=== PATIENT | female | born 1935 | race Caucasian/White ===

== ENCOUNTER → 2017-01-02 | Outpatient (CLI) | payer BC ==
[~2017-01-02] MED LIST: ASCA500 PO; BALANCE OPB; CHOL100010 PO; CLTP PO; CYCL0.052 OPB; LISI-461 PO; MULT-188 PO; OMEGCAP2 PO; VIT B1 PO; VITA400C15 PO
--- NOTE | 2017-01-02 14:11 | MAMMOGRAPHY REPORT ---
BILATERAL DIGITAL SCREENING MAMMOGRAM WITH CAD: 01/02/2017 CLINICAL HISTORY: Routine screening. Patient has no complaints. TECHNIQUE: Current study was also evaluated with a Computer Aided Detection (CAD) system. Bilatera l CC and MLO views were obtained. COMPARISON: Comparison is made to exams dated: 12/30/2015 mammogram, 12/28/2014 mammogram, 12/23/2013 mammogram, 12/22/2012 mammogram, 12/21/2011 mammogram, and 12/19/2010 mammogram - [facility]. BREAST COMPOSITION: There are scattered areas of fibroglandular density in both breasts. FINDINGS: No suspicious masses, calcifications, or areas of architectural distortion are noted in e ither breast. There has been no significant interval change compared to prior exams. There are stab le post surgical changes in the left breast from prior surgical excision; a linear scar marker denot es a scar on the left lateral breast. Scattered bilateral benign-appearing calcifications are not s ignificantly changed. IMPRESSION: ACR BI-RADS CATEGORY 2: BENIGN There is no mammographic evidence of malignancy. A 1 year screening mammogram is recommended. The p atient will receive written notification of the results. Approximately 10% of breast cancers are not detected with mammography. A negative mammographic repor t should not delay biopsy if a clinically suggestive mass is present. Hafsa Roca M.D. /:01/02/2017 13:15:54 Education Program Associate: Francia REBOLLEDO(Brie)(M), [facility] letter sent: Normal 1/2 BI-RADS Code: ACR BI-RADS Category 2: Benign
== END | disposition home or self-care (01) ==
LOC: C.MAMM 09:19
PROVIDERS: ATTEND Internal Medicine Geriatric Medicine
DX: Z12.31 Encounter for screening mammogram for malignant neoplasm of breast (principal)

== ENCOUNTER → 2017-01-08 | Outpatient (CLI) | payer BC | END | disposition home or self-care (01) | LOC: C.MAMM 09:59 | PROVIDERS: ATTEND Internal Medicine Geriatric Medicine | DX: M85.852 Other specified disorders of bone density and structure, left thigh (principal) ==

== ENCOUNTER → 2017-04-16 | Outpatient (CLI) | payer BC ==
[2017-04-16 13:23] LABS: BASO % 0.2 %; BASO ABS # 0.01 K/uL (0-0.2); COMPLETE YES; EOS % 3.6 %; HEMATOCRIT 40.8 % (37-47); IG% 0.3 %; LYMPH % 27.3 %; LYMPH ABS # 1.69 K/uL (1.2-3.4); MEAN CELL VOLUME 93.6 fL (80-100); MEAN CORPUSCULAR HEMOGLOBIN 31.4 pg (25-34); MEAN CORPUSCULAR HGB CONC 33.6 g/dl (32-36); MEAN PLATELET VOLUME 10.3 fL (7.4-10.4); MONO % 10.7 %; NEUT % 57.9 %; PLATELET COUNT 262 K/uL (130-400); RED BLOOD COUNT 4.36 M/uL (4.2-5.4); WHITE BLOOD COUNT 6.18 K/uL (4.8-10.8)
[2017-04-16 14:30] LABS: ALT/SGPT 34 U/L (12-78); BLOOD UREA NITROGEN 18 mg/dl (7-18); BUN/CREATININE RATIO 19.4 (10-20); CALCIUM 9.5 mg/dl (8.5-10.1); CARBON DIOXIDE 32 mmol/L (21-32); CHLORIDE 104 mmol/L (98-107); CHOLESTEROL 214 mg/dl (0-200); CREATININE 0.94 mg/dl (0.60-1.20); GLUCOSE 93 mg/dl (70-99); SODIUM 139 mmol/L (136-145); TRIGLYCERIDES 314 mg/dl (0-150); VERY LOW DENSITY LIPOPROT CALC 63 mg/dl
[2017-04-16 14:40] LABS: ALB/GLOB RATIO 0.9 (0.9-2); ALKALINE PHOSPHATASE 68 U/L (45-117); AST/SGOT 39 U/L (15-37); CHOLESTEROL/HDL RATIO 5.2; HDL CHOLESTEROL 41 mg/dl; LDL CHOLESTEROL CALCULATED 110 mg/dl
--- NOTE | 2017-04-25 13:40 | CODING QUERY MEDICAL NECESSITY ---
SUPPORTING DIAGNOSIS NEEDED A supporting diagnosis is required for the test/procedure performed on this patient in order for us to be reimbursed by the patient's insurance. Please provide a supporting diagnosis for the following test/procedure listed below next to the test name along with your signature. *If there is no additional diagnosis for this patient that would support the following test/procedure please document that below next to the test/procedure. Test(s)/Procedure(s) that require a supporting diagnosis: * VITAMIN D, 25 - HYDROXY DIAGNOSIS: Provider Signature: Date: Thank you Marta Charles [employer] Once completed, please kindly fax back to [phone] For questions please call [phone]
== END | disposition home or self-care (01) ==
LOC: C.LABBC 10:15
PROVIDERS: ATTEND Internal Medicine Geriatric Medicine
DX: Z00.00 Encounter for general adult medical examination without abnormal findings (principal); E78.5 Hyperlipidemia, unspecified; M85.80 Other specified disorders of bone density and structure, unspecified site

== ENCOUNTER → 2017-10-08 | Outpatient (CLI) | payer BC | END | disposition home or self-care (01) | LOC: C.PATHSPEC 16:56 | PROVIDERS: ATTEND Dermatology | DX: L82.1 Other seborrheic keratosis (principal) ==

== ENCOUNTER 2023-06-24 15:10 | Inpatient (IN) ==
--- NOTE | 2023-06-24 16:31 | Emergency Department Note ---
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 Patient states she was getting out of bed 2 to 3 weeks ago and last her footing and somehow rolled her left ankle causing her to almost fall. She states she caught herself by holding onto something but her left foot hyper-dorsiflexed. She has been ambulating since the injury but continues to experience pain diffusely throughout her ankle and swelling. She denies numbness/tingling. She denies falling or hitting her head or sustaining other injuries. She has been taking Tylenol or aspirin occasionally for her pain. Denies previous injury or surgeries to this extremity. Home Medications Medication Instructions Recorded Confirmed Type lisinopril 20 mg tablet 20 mg PO DAILY #90 tabs 02/26/22 06/24/23 Rx donepezil 10 mg tablet 10 mg PO HS 30 days #30 tabs 04/19/23 06/24/23 Rx acetaminophen 500 mg tablet 500 mg PO Q6H PRN Pain 06/24/23 06/24/23 History Allergies Allergy/AdvReac Type Severity Reaction Status Date / Time Ibandronate Sodium TABS AdvReac Intermediate Unknown Uncoded 06/24/23 18:30 Past Med/Surg History Medical History Mesenteric artery stenosis Osteopenia DEXA (01/19) with minimum T-score -1.2 involving femur. 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 marital status: Single Current Living Situation: Alone current occupational status: retired How many Children do You have: 0 Feels Safe at Home: Yes Childhood Exposure to Second-Hand Smoke: No Diet: regular Diet Comment: Boost caffeine: Yes Dental Care, Regularly: Yes Physical Activity Frequency: 1-2 Times per Week Seatbelt Use: always Sunscreen Use: Yes Assistive Devices: Cane and Walker Physical Exam Vital Signs Vital Signs - 24 hr 06/24/23 15:38 06/24/23 17:11 Temperature 36.9 C Temperature Source Temporal Artery Scan Pulse Rate 86 Pulse Rate [Apical] 84 Respiratory Rate 20 18 Respiratory Effort / Characteristics Non-Labored Respiratory Depth Normal Blood Pressure 174/75 H Blood Pressure Mean 108 Pulse Oximetry 98 98 Oxygen Delivery Method Room Air Room Air Sepsis Recent Fever Within 48 Hours No Sepsis New/Unexplained Change in Mental Status No Sepsis Action Taken by Nursing No Action Required Constitutional: alert and oriented x3. no acute distress. nontoxic HEENT: normocephalic, atraumatic. normal conjunctiva.PERRLA. EOM's grossly intact. TMs pearly robert without effusion. Pharynx pink without exudate. Tonsils nonenlarged. Mucus membranes moist Neck: neck is supple, nontender. Respiratory: lungs are clear to auscultation without wheezes, rhonchi, or rales bilaterally. equal chest rise. normal respiratory effort, no accessory muscle use. Cardiovascular: normal heart sounds without murmur. regular rate and rhythm. MSK: Diffuse tenderness at the left ankle and dorsal foot with associated swelling. No open wounds. Range of motion intact. Left knee and hip nontender to palpation Peripheral vascular: Lower extremities warm and well perfused with palpable pedal pulses. Brisk capillary refill of all digits. Sensation grossly intact Psych:appropriate mood and affect. Medical Decision Making Differential Diagnosis Fracture, subluxation, dislocation, contusion, ligamentous injury, neurovascular, compartment syndrome, rhabdomyolysis, as well as other pathologies. Laboratory Data 06/24/23 18:20 06/24/23 18:20 Lab Results 06/24/23 Range/Units 18:20 WBC 6.28 (4.8-10.8) K/ul RBC 4.30 (4.20-5.40) M/uL Hgb 13.0 (12.0-16.0) g/dl Hct 40.1 (37.0-47.0) % MCV 93.3 (80.0-100.0) fL MCH 30.2 (25.0-34.0) pg MCHC 32.4 (32.0-36.0) g/dL RDW Std Deviation 44.7 (36.4-46.3) fL RDW Coeff of Federico 13.2 (11.5-14.5) % Plt Count 245 (130-400) K/uL MPV 10.7 (9.4-12.4) fL Immature Gran % (Auto) 0.3 % Neut % (Auto) 67.2 % Lymph % (Auto) 19.9 % Mcdonough % (Auto) 11.0 % Eos % (Auto) 1.4 % Baso % (Auto) 0.2 % Neut # (Auto) 4.22 (1.40-6.50) K/uL Lymph # (Auto) 1.25 (1.20-3.40) K/uL Mcdonough # (Auto) 0.69 H (0.11-0.59) K/uL Eos # (Auto) 0.09 (0.00-0.50) K/uL Baso # (Auto) 0.01 (0.00-0.20) K/uL Immature Gran # (Auto) 0.02 (0.01-0.20) K/uL Sodium 141 (136-145) mmol/L Potassium 3.8 (3.5-5.1) mmol/L Chloride 105 (98-107) mmol/L Carbon Dioxide 30 (21-32) mmol/L Anion Gap 6 (3-11) BUN 28 H (6-23) mg/dl Creatinine 0.74 (0.6-1.2) mg/dl Est Cr Clr Drug Dosing Not Reportable Est GFR ( Amer) 83.8 ml/min Est GFR (Non-Af Amer) 72.3 ml/min BUN/Creatinine Ratio 37.8 H (10-20) Glucose 105 H (70-99(Fasting)) mg/dl Calcium 10.2 (8.6-10.3) mg/dl Total Bilirubin 0.4 (0.2-1.0) mg/dl AST 29 (13-39) U/L ALT 28 (7-52) U/L Alkaline Phosphatase 76 (34-104) U/L Total Protein 7.6 (6.0-8.3) gm/dl Albumin 4.1 (3.4-5.0) gm/dl Globulin 3.5 (2.5-4.0) gm/dl Albumin/Globulin Ratio 1.2 (0.9-2) Imaging Data My Impression: Left ankle and foot x-ray per my interpretation demonstrates metatarsal neck fractures of the second through fourth digits. No fracture or dislocation of the ankle Radiologist's Impression: Ankle X-Ray 06/24/23 16:27 XR ankle LT min 3V routine CLINICAL HISTORY: pain fall x 2 weeks TECHNIQUE: 3 views of the left ankle were obtained. Comparison: None available at the time of this dictation. FINDINGS: No fractures are present. The joint spaces are well preserved. The ankle mortise is intact. Soft tissue swelling is seen about the ankle. Vascular calcifications are seen. IMPRESSION: Soft tissue swelling is seen without evidence of underlying bony abnormality. ACT 112: Negative or not required by law. Electronically signed by: Rusty Chinchilla M.D. 06/24/2023 4:59 PM Foot X-Ray 06/24/23 16:27 LEFT FOOT 3 VIEWS CLINICAL HISTORY: Recent fall. Left foot pain. FINDINGS: 3 views of the left foot are compared to study dated 12/08/2021. The skeletal structures are osteopenic. There are minimally angulated fractures through the necks of the second, third, and fourth metatarsals with overlying soft tissue edema. No additional acute fracture is seen. Mild osteoarthritic change is seen throughout the foot, greatest at the first metatarsophalangeal joint. There is atherosclerotic calcification of the regional arteries. IMPRESSION: Second through fourth metatarsal neck fractures as above. Electronically signed by: Anil Mcfarlane M.D. 06/24/2023 4:54 PM MDM Narrative 88-year-old female presents to the emergency department accompanied by [id number]/POA for evaluation of left ankle and foot pain status post mechanical fall. Review of pertinent visits and past medical history performed. Vital signs in ED stable, afebrile. Patient was seen and evaluated as above. X-rays of the left foot and ankle were obtained. These were personally reviewed as well as interpreted by radiology as above and demonstrate second through fourth metatarsal necks fractures, minimally angulated. No other fractures noted within the left ankle. On exam, patient is well-appearing in no acute distress. She is mildly tender throughout the left ankle and foot with associated swelling. Neurovascularly intact. She declined need for pain medication while in the ED. Upon reassessment, patient remained stable with no new concerns. They were updated on all exam findings and test results. X-rays demonstrate fracture of the left foot. We discussed treatment options. Given her injury occurred approximately 2 weeks ago when she has been ambulating ever since, we discussed use of a fracture boot for additional support. She was agreeable to this. She will need close follow-up with orthopedics for continued management of her fracture. They verbalized understanding. [id number] does express concern for patient getting around on her own at home as she does live alone. She also notes she has dementia and does not remember much which further concerns her being alone with her injury. She requested placement to a rehab/SNF facility. I discussed case with hospitalist, Dr. Palencia, who graciously accepted patient to his service for continued management, PT/OT evaluation and placement. She was admitted in stable condition. Impression & Plan Closed fracture of metatarsal of right foot Discharge Plan Visit Data Chief Complaint: Ankle Pain Stated Complaint: FALL 3 WKS AGO, LEFT ANKLE PAIN ED Provider: Yves Fried ED Midlevel Provider: Key Flores Discharge Problem: Closed fracture of metatarsal of right foot Patient Disposition: Home - Self-Care Condition: Good Discharge Instructions Activity Restrictions/Additional Instructions: Wear fracture boot with ambulation until follow-up with orthopedics for further evaluation. Utilize walker for assistance Take Tylenol/ibuprofen for pain as needed. These may be alternated every 3 hours Elevate and ice affected remedy for 20 minutes at a time 2-3 times a day for swelling Please call orthopedics office to schedule outpatient appointment for further management of your foot fracture Return to the emergency department for any worsening or new concerning symptoms Forms Stand Alone Forms: My [facility], Important Visit Information Prescriptions Prescriptions: No Action lisinopril 20 mg tablet 20 mg PO DAILY Qty: 90 3RF donepezil 10 mg tablet 10 mg PO HS 30 Days Qty: 30 5RF acetaminophen [Tylenol Ex Str Rapid Release] 500 mg Tablet 500 mg PO Q6H PRN (Reason: Pain) Referrals Referrals: Clark Machuca DO [Primary Care Provider] - Neo Ramirez DO [Surgeon] -
--- NOTE | 2023-06-24 16:55 | XRay Report ---
LEFT FOOT 3 VIEWS CLINICAL HISTORY: Recent fall. Left foot pain. FINDINGS: 3 views of the left foot are compared to study dated 12/08/2021. The skeletal structures are osteopenic. There are minimally angulated fractures through the necks of the second, third, and fourt h metatarsals with overlying soft tissue edema. No additional acute fracture is seen. Mild osteoarthr itic change is seen throughout the foot, greatest at the first metatarsophalangeal joint. There is at herosclerotic calcification of the regional arteries. IMPRESSION: Second through fourth metatarsal neck fractures as above. Electronically signed by: Anil Mcfarlane M.D. 06/24/2023 4:54 PM
--- NOTE | 2023-06-24 17:00 | XRay Report ---
XR ankle LT min 3V routine CLINICAL HISTORY: pain fall x 2 weeks TECHNIQUE: 3 views of the left ankle were obtained. Comparison: None available at the time of this dictation. FINDINGS: No fractures are present. The joint spaces are well preserved. The ankle mortise is intact. Soft tiss ue swelling is seen about the ankle. Vascular calcifications are seen. IMPRESSION: Soft tissue swelling is seen without evidence of underlying bony abnormality. ACT 112: Negative or not required by law. Electronically signed by: Rusty Chinchilla M.D. 06/24/2023 4:59 PM
[2023-06-24 18:32] LABS: Basophils # (auto) 0.01 K/uL (0.00-0.20); Basophils % (auto) 0.2 %; Eosinophils # (auto) 0.09 K/uL (0.00-0.50); Eosinophils % (auto) 1.4 %; Hematocrit (blood only) 40.1 % (37.0-47.0); Immature Granulocytes # (auto) 0.02 K/uL (0.01-0.20); Immature Granulocytes % (auto) 0.3 %; Lymphocytes # (auto) 1.25 K/uL (1.20-3.40); Lymphocytes % (auto) 19.9 %; Mean Corpuscular Hemoglobin 30.2 pg (25.0-34.0); Mean Corpuscular Hgb Conc 32.4 g/dL (32.0-36.0); Mean Corpuscular Volume 93.3 fL (80.0-100.0); Mean Platelet Volume 10.7 fL (9.4-12.4); Monocytes # (auto) 0.69 K/uL (0.11-0.59); Neutrophils # (auto) 4.22 K/uL (1.40-6.50); Neutrophils % (auto) 67.2 %; Platelet Count 245 K/uL (130-400); RDW Coefficient of Variation 13.2 % (11.5-14.5); RDW Standard Deviation 44.7 fL (36.4-46.3); White Blood Count 6.28 K/ul (4.8-10.8)
[2023-06-24 18:52] LABS: Alanine Aminotransferase 28 U/L (7-52); Albumin Globulin Ratio 1.2 (0.9-2); Albumin Level 4.1 gm/dl (3.4-5.0); Alkaline Phosphatase 76 U/L (34-104); Anion Gap 6 (3-11); Aspartate Aminotransferase 29 U/L (13-39); BUN Creatinine Ratio 37.8 (10-20); Bilirubin,Total 0.4 mg/dl (0.2-1.0); Blood Urea Nitrogen 28 mg/dl (6-23); Calcium 10.2 mg/dl (8.6-10.3); Carbon Dioxide 30 mmol/L (21-32); Chloride 105 mmol/L (98-107); Est GFR (African American) 83.8 ml/min; Est GFR (Non-African American) 72.3 ml/min; Globulin 3.5 gm/dl (2.5-4.0); Glucose 105 mg/dl (70-99(Fasting)); Potassium 3.8 mmol/L (3.5-5.1); Sodium 141 mmol/L (136-145); Total Protein 7.6 gm/dl (6.0-8.3)
[2023-06-24 19:05] LABS: INR 0.9 (0.9-1.1); Prothrombin Time 10.4 Seconds (9.0-12.0)
--- NOTE | 2023-06-24 19:11 | History & Physical Report ---
Date of Service June 24, 2023 Assessment & Plan (1) Closed fracture of metatarsal of right foot: Plan: Patient fell and injured left foot 3 weeks ago R Ankle x-ray revealed soft tissue swelling without evidence of acute fracture R Foot x-ray revealed second through fourth metatarsal neck fracture Boot placed on left foot in the ED Ortho consulted Acetaminophen 650 mg p.o. q4h as needed for pain A.m. CBC, BMP (2) Dementia: Plan: Continue donepezil Plan [facility]: [facility] Regular diet VTE PPx: Hold for now; consider starting after pt seen by Ortho History of Present Illness Chief Complaint: Ankle pain Primary Care Provider: Clark Machuca DO Sonya is an 88-year-old female with PMH of HTN, dementia, NPH, and osteopenia. She presented for left foot/ankle pain x3 weeks. Patient reportedly fell 3 weeks ago while getting up at night to go to the bathroom, and rolled her left foot backwards. She denies hitting her head. No LOC. No other history of falls, per patient. Patient ambulates with a cane/walker at baseline, but was not using it at the time of the fall. Patient lives alone. She reports that she was able to get back up after the fall. She has been taking Tylenol for the pain (1 to 2 tablets daily) and Voltaren gel. The pain is located in her left ankle and left toes. She rates the pain 2/10, and is only exacerbated by movement. No radiation beyond the ankle. She does not know if she took her morning medications. She denies the need for pain medication at present. Left foot x-ray on arrival revealed second through fourth metatarsal neck fractures. Patient exhibits hypertension at 181/77 on admission; vitals otherwise stable. ED course: Lisinopril 20 mg p.o. ROS: Patient endorses frequent urination, and LLE pain. Patient denies fever, chills, chest pain, SOB, abdominal pain, N/V, or burning with urination. No PMHx of [place], DVT/PE, cancer, CVA, diabetes Social hx: No smoking Minimal social alcohol use No recreational drug use Patient's [id number] (Eloisa) is present at the bedside and provides additional history. She also confirms patient's code status as DNR/DNI, as patient does not exhibit capacity due to underlying dementia. Allergies Allergy/AdvReac Type Severity Reaction Status Date / Time Ibandronate Sodium TABS AdvReac Intermediate Unknown Uncoded 06/24/23 18:30 Home Medications Medication Instructions Recorded Confirmed Type lisinopril 20 mg tablet 20 mg PO DAILY #90 tabs 02/26/22 06/24/23 Rx donepezil 10 mg tablet 10 mg PO HS 30 days #30 tabs 04/19/23 06/24/23 Rx acetaminophen 500 mg tablet 500 mg PO Q6H PRN Pain 06/24/23 06/24/23 History Past Med/Surg History Medical History Mesenteric artery stenosis Osteopenia DEXA (01/19) with minimum T-score -1.2 involving femur. 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 Obstructive sleep apnea (~2009) Using dental appliance Hypertension Surgical History History of tonsillectomy Family History Mother Hypertension Father Hypertension Stroke Denies family history of Colon cancer Ovarian cancer Prostate cancer Myocardial infarction Breast cancer Social History Smoking Status: Never smoker Second Hand Exposure: No; Do You Dip or Chew Tobacco: No; Hx Alcohol Use: No Hx Substance Use: No Preferred Language: Cameroonian Communication Ability: Effective Visual Impairment: Limited Hearing Ability: Hard of Hearing Client Development Manager Required: No Beliefs That Will Affect Care: None marital status: Single Current Living Situation: Alone current occupational status: retired How many Children do You have: 0 Feels Safe at Home: Yes Safety Concerns: Feels Safe At This Time Childhood Exposure to Second-Hand Smoke: No Diet: regular Diet Comment: Boost caffeine: Yes Dental Care, Regularly: Yes Physical Activity Frequency: 1-2 Times per Week Seatbelt Use: always Sunscreen Use: Yes Assistive Devices: Cane and Walker Review of Systems Review of Systems: See HPI above Physical Exam Physical Exam: General: no acute distress; non-toxic appearing; cooperative HEENT: normocephalic, atraumatic; no scleral icterus; PERRLA w/ EOMs intact; dry mucus membrane; vision intact; hard of hearing Neck: supple; no lymphadenopathy; trachea midline Skin: warm, dry without signs of tenting; no cyanosis; no rashes, bruising, lesions, or erythema noted CV: chest wall NTP; RRR; S1/S2 normal; no murmurs/rubs/gallops; pulses intact in the right radial, DP, and PT Lungs: no acute respiratory distress; symmetrical chest wall expansion; clear breath sounds across all lung cummings w/o adventitious sounds; no wheezing ABD: Soft, NTP; BS present; no rebound/guarding; no ascites; no distention; negative CVA tenderness MSK: no tics or fasciculations; no edema noted in the LEs b/l LLE: In boot, patient exhibits the ability to wiggle toes; sensation intact in the left toes Neuro: A&Ox3; slow to respond to questioning; fluent speech; no focal deficits; sensation intact in the LEs B/L Results & Data Results & Data Vital Signs (Past 12 Hours) Vital Signs Temp Pulse Pulse Resp BP Pulse Ox O2 Del Method 06/24/23 17:11 84 18 98 Room Air 06/24/23 15:38 36.9 C 86 20 174/75 H 98 Room Air Laboratory Results Abnormal lab results 06/24/23 Range/Units 18:20 [place] # (Auto) 0.69 H (0.11-0.59) K/uL BUN 28 H (6-23) mg/dl BUN/Creatinine Ratio 37.8 H (10-20) Glucose 105 H (70-99(Fasting)) mg/dl Diagnostic Findings Ankle X-Ray 06/24/23 16:27 XR ankle LT min 3V routine CLINICAL HISTORY: pain fall x 2 weeks TECHNIQUE: 3 views of the left ankle were obtained. Comparison: None available at the time of this dictation. FINDINGS: No fractures are present. The joint spaces are well preserved. The ankle mortise is intact. Soft tissue swelling is seen about the ankle. Vascular calcifications are seen. IMPRESSION: Soft tissue swelling is seen without evidence of underlying bony abnormality. ACT 112: Negative or not required by law. Electronically signed by: Rusty Chinchilla M.D. 06/24/2023 4:59 PM Foot X-Ray 06/24/23 16:27 LEFT FOOT 3 VIEWS CLINICAL HISTORY: Recent fall. Left foot pain. FINDINGS: 3 views of the left foot are compared to study dated 12/08/2021. The skeletal structures are osteopenic. There are minimally angulated fractures through the necks of the second, third, and fourth metatarsals with overlying soft tissue edema. No additional acute fracture is seen. Mild osteoarthritic change is seen throughout the foot, greatest at the first metatarsophalangeal joint. There is atherosclerotic calcification of the regional arteries. IMPRESSION: Second through fourth metatarsal neck fractures as above. Electronically signed by: Anil Mcfarlane M.D. 06/24/2023 4:54 PM Code Status & VTE Plan Code Status DNR/DNI VTE Prophylaxis Plan VTE Prophylaxis will be ordered: No Supervising Physician Co-Signing Physician Notes I personally saw and examined the patient. I independently reviewed the labs, i maging, problem list, medication list, past medical history and family history. I verified all green points and agree with Deonte Liz PA-C with the following exceptions and/or additions: 88 year old female who presents to the ER with left foot pain for the last 3 weeks. Unable to give a good history of mechanism of injury but thinks she rolled the foot backwards. She thinks it was more of a balance issue or catching her foot and is not concerned about any dizziness or loss of consciousness. Came in today as not improving and feels she can no longer manage at home. O/E A&Ox3, HS RRR, no murmurs, Chest CTAB, Abdo SNT, left foot in boot, sensation intact distally A/P 2nd-4th MT neck fractures - NWB pending orthopedic evaluation, PT/OT placement PG Care Time/CCT Total # of Minutes Spent Total Time Spent with Patient: Total time spent is greater than 50% in coordination of care (as documented) at patient's floor/unit and/or counseling patient: C[place] [address] INT INP/OBS CARE 1/40MIN Patient Type Established Medical Decision Making Low Complexity Diagnoses Closed fracture of metatarsal of right foot S92.301A Dementia F03.90
--- NOTE | 2023-06-24 19:26 | Emergency Department Note ---
ED Visit Note I was consulted by the Advanced Practice Provider Key Flroes PA-C. I saw the patient personally and performed a substantive portion of the visit. This includes aspects of the HPI, MDM, diagnostic interpretations, and disposition/plan. Patient presented due to concern for recent fall with left foot pain the patient does have second through fifth metatarsal neck fractures. Patient admitted to the medicine service .
[2023-06-24 20:07] LABS: Magnesium 2.3 mg/dl (1.7-2.4)
[2023-06-24] MEDS ORDERED: lisinopril 20 MG TAB PO STA (20:14)
[2023-06-24] MEDS ORDERED: ACETAMINOPHEN 325 MG TAB PO PRN (20:45)
[2023-06-24] MEDS: DONEPEZIL HCL 10 MG TAB PO SCH (21:41)
[2023-06-25 06:43] LABS: Basophils # (auto) 0.02 K/uL (0.00-0.20); Basophils % (auto) 0.3 %; Eosinophils # (auto) 0.02 K/uL (0.00-0.50); Eosinophils % (auto) 0.3 %; Hematocrit (blood only) 37.8 % (37.0-47.0); Hemoglobin 12.3 g/dl (12.0-16.0); Immature Granulocytes # (auto) 0.02 K/uL (0.01-0.20); Immature Granulocytes % (auto) 0.3 %; Lymphocytes # (auto) 1.05 K/uL (1.20-3.40); Lymphocytes % (auto) 18.2 %; Mean Corpuscular Hemoglobin 30.5 pg (25.0-34.0); Mean Corpuscular Hgb Conc 32.5 g/dL (32.0-36.0); Mean Corpuscular Volume 93.8 fL (80.0-100.0); Mean Platelet Volume 10.8 fL (9.4-12.4); Monocytes # (auto) 0.56 K/uL (0.11-0.59); Monocytes % (auto) 9.7 %; Neutrophils # (auto) 4.09 K/uL (1.40-6.50); Neutrophils % (auto) 71.2 %; Platelet Count 234 K/uL (130-400); RDW Coefficient of Variation 13.1 % (11.5-14.5); RDW Standard Deviation 45.1 fL (36.4-46.3); Red Blood Count 4.03 M/uL (4.20-5.40); White Blood Count 5.76 K/ul (4.8-10.8)
[2023-06-25 07:20] LABS: Calcium 9.3 mg/dl (8.6-10.3); Potassium 3.8 mmol/L (3.5-5.1)
[2023-06-25 07:26] LABS: BUN Creatinine Ratio 32.8 (10-20); Creatinine Clr Calc Pharmacy 45.9 ml/min; Est GFR (Non-African American) 78.5 ml/min
[2023-06-25] MEDS: lisinopril 20 MG TAB PO SCH (07:29)
--- NOTE | 2023-06-25 12:45 | Hospitalist Progress Note ---
Date of Service June 25, 2023 Assessment & Plan (1) Closed fracture of metacarpal bone, neck: Plan: Patient fell and injured left foot 3 weeks ago L Ankle x-ray revealed soft tissue swelling without evidence of acute fracture L Foot x-ray revealed second through fourth metatarsal neck fracture Boot placed on left foot in the ED Ortho consulted Acetaminophen 650 mg p.o. q4h as needed for pain A.m. CBC, BMP (2) Dementia: Plan: Continue donepezil Plan Disposition: Obs -admit to [facility] DNR/DNI Regular diet VTE PPx: Hold for now; consider starting after pt seen by Ortho Admission and Anticipated Discharge Date Admission Date: June 24, 2023 Subjective Patient seen and examined, still n.p.o. says she is getting hungry. Pain is under good control Review of Systems Review of Systems: All systems reviewed are negative, apart from the ones contained in the history. Physical Exam Physical Exam: The patient is awake, alert and oriented 3, well developed and well nourished, normocephalic and atraumatic, lying in bed and in no acute distress. HEENT--PERRL, EOMI, mucous membranes and oropharynx mildly dry Neck--supple. No JVD. No bruits. Thyroid normal, trachea midline, no adenopathy. Heart--normal S1 and S2. No murmurs, rubs or gallops. Lungs--clear bilaterally, no respiratory distress, no accessory muscle use. Abdomen--normal bowel sounds and soft. Mild epigastric and left sided abdominal pain Extremities--left foot in cast Dermatologic--normal skin turgor, normal color, no abnormal lymph nodes, no rash. Neurologic--cranial nerves II through XII grossly intact. Rheumatologic--normal range of motion. Psychiatric--normal affect. Results & Data Results & Data Vital Signs (Past 12 Hours) Vital Signs Temp Pulse Resp BP Pulse Ox O2 Del Method 06/25/23 07:27 98.2 F 80 16 164/80 H 95 Room Air PG Care Time/CCT Total # of Minutes Spent Total Time Spent with Patient: Total time spent is greater than 50% in coordination of care (as documented) at patient's floor/unit and/or counseling patient: Coding Level of Care Code 61918 SUB INP/OBS CARE 2/35MIN Diagnoses Closed fracture of metacarpal bone, neck S62.339A Dementia F03.90 Time Spent (min) 35
[2023-06-25] MEDS ORDERED: hydroCHLOROthiazide 25 MG TAB PO STA (16:06)
--- NOTE | 2023-06-25 19:35 | Orthopedic Consultation ---
Date of Consultation June 25, 2023 Assessment & Plan (1) Closed fracture of neck of metatarsal bone of left foot: Patient has closed metatarsal neck fractures of the second, third and fourth metatarsals. Recommend nonoperative management with low tide walking boot. Limited weightbearing with walker. Apply ice to the left foot daily. Follow-up in 3 to 4 weeks after discharge with Dr. Correia with x-rays left foot at that time for reassessment. Thank you for the opportunity to consult in the care of this patient. Salazar Francismaliha DO [facility] orthopedic [place] [phone] History of Present Illness Reason for Consultation: Left foot pain, swelling and fractures of the second, third and fourth metatarsal necks. Requesting Physician: Twin Ng MD Attending Physician: Twin Ng MD History of Present Illness This pleasantly confused 88-year-old woman states that she likely twisted her left foot 3 weeks prior. She has had pain and swelling for the last few weeks. Finally she presented to [facility] ER where she had radiog raphs and was diagnosed with second, third and fourth metatarsal neck fractures. She was admitted to the hospitalist service due to inability to ambulate and multiple comorbidities and orthopedics was consulted. Allergies Allergy/AdvReac Type Severity Reaction Status Date / Time Ibandronate Sodium TABS AdvReac Intermediate Unknown Uncoded 06/24/23 18:30 Home Medications Medication Instructions Recorded Confirmed Type lisinopril 20 mg tablet 20 mg PO DAILY #90 tabs 02/26/22 06/24/23 Rx donepezil 10 mg tablet 10 mg PO HS 30 days #30 tabs 04/19/23 06/24/23 Rx acetaminophen 500 mg tablet 500 mg PO Q6H PRN Pain 06/24/23 06/24/23 History Patient History Medical History Mesenteric artery stenosis Osteopenia DEXA (01/19) with minimum T-score -1.2 involving femur. 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 Obstructive sleep apnea (~2009) Using dental appliance Hypertension Surgical History History of tonsillectomy Family History Mother Hypertension Father Hypertension Stroke Denies family history of Colon cancer Ovarian cancer Prostate cancer Myocardial infarction Breast cancer Social History Smoking Status: Never smoker Second Hand Exposure: No; Do You Dip or Chew Tobacco: No; Hx Alcohol Use: No Hx Substance Use: No Preferred Language: Romansh Communication Ability: Effective Visual Impairment: Limited Hearing Ability: Hard of Hearing [employer] Merch[employer] Required: No Beliefs That Will Affect Care: None marital status: Single Current Living Situation: Alone current occupational status: retired How many Children do You have: 0 Feels Safe at Home: Yes Safety Concerns: Feels Safe At This Time Childhood Exposure to Second-Hand Smoke: No Diet: regular Diet Comment: Boost caffeine: Yes Dental Care, Regularly: Yes Physical Activity Frequency: 1-2 Times per Week Seatbelt Use: always Sunscreen Use: Yes Assistive Devices: Cane and Walker Physical Exam Constitutional: WD/WN, vitals as above Eyes: PERRL, conjunctivae normal, anicteric sclerae ENMT: external ear and nose normal, oropharynx normal Neck: trachea midline, no thyromegaly Respiratory: normal respiratory effort, lungs clear to auscultation Cardiovascular: Regular rate and rhythm. Extremities well perfused. Gastrointestinal (Abdomen): Abdomen soft, nontender and nondistended. Bowel sounds present. Musculoskeletal: Left foot in low tide walking boot. Walking boot was removed and lower extremity was examined. Skin is warm, dry and intact. There is tenderness to palpation at the second, third and fourth metatarsal necks of the left foot. Limited range of motion and strength testing due to pain and guarding of the left foot. Pedal pulses palpable 2/4 bilateral feet. Sensation intact bilateral feet. Skin: no rashes, warm and dry Psychiatric: Features consistent with dementia. Lymphatic: no cervical or axillary lymphadenopathy Results & Data Vital Signs (Past 12 Hours) Vital Signs Temp Pulse Resp BP Pulse Ox O2 Del Method 06/25/23 16:12 36.5 C 86 16 184/80 H 97 Room Air 06/25/23 07:27 36.8 C 80 16 164/80 H 95 Room Air Diagnostic Findings Radiographs of the left foot reviewed noting minimally angulated and minimally displaced fractures of the second, third and fourth metatarsal necks. Os teopenia is evident. Minimal soft tissue swelling. (1) Closed fracture of neck of metatarsal bone of left foot Encounter type: initial encounter Qualified Code(s): S92.302A - Fracture of unspecified metatarsal bone(s), left foot, initial encounter for closed fracture
[2023-06-25] MEDS: DONEPEZIL HCL 10 MG TAB PO SCH (20:02)
[2023-06-25] MEDS ORDERED: ONDANSETRON INJ 2 MG/ML 2 ML VIAL IV PRN (23:25)
[2023-06-25] MEDS ORDERED: ONDANSETRON INJ 2 MG/ML 2 ML VIAL ONE (23:49)
[2023-06-26 06:21] LABS: Hematocrit (blood only) 41.9 % (37.0-47.0); Hemoglobin 13.6 g/dl (12.0-16.0); Mean Corpuscular Hemoglobin 30.5 pg (25.0-34.0); Mean Corpuscular Hgb Conc 32.5 g/dL (32.0-36.0); Mean Corpuscular Volume 93.9 fL (80.0-100.0); Mean Platelet Volume 10.9 fL (9.4-12.4); Platelet Count 265 K/uL (130-400); RDW Standard Deviation 44.8 fL (36.4-46.3); Red Blood Count 4.46 M/uL (4.20-5.40); White Blood Count 7.42 K/ul (4.8-10.8)
[2023-06-26 06:36] LABS: BUN Creatinine Ratio 26.8 (10-20); Calcium 9.7 mg/dl (8.6-10.3); Creatinine Clr Calc Pharmacy 37.5 ml/min; Est GFR (Non-African American) 63.9 ml/min; Potassium 3.8 mmol/L (3.5-5.1)
[2023-06-26] MEDS: hydroCHLOROthiazide 25 MG TAB PO SCH (08:30)
[2023-06-26] MEDS: lisinopril 20 MG TAB PO SCH (08:30)
--- NOTE | 2023-06-26 14:15 | Hospitalist Progress Note ---
Date of Service June 26, 2023 Assessment & Plan (1) Closed fracture of metacarpal bone, neck: Plan: Patient fell and injured left foot 3 weeks ago L Ankle x-ray revealed soft tissue swelling without evidence of acute fracture L Foot x-ray revealed second through fourth metatarsal neck fracture Boot placed on left foot in the ED Ortho consulted, no need for surgery. Continue boot and weaight bearing with a walker Acetaminophen 650 mg p.o. q4h as needed for pain A.m. CBC, BMP (2) Dementia: Plan: Continue donepezil Plan Disposition: Patient lives by herself and according to sister Eloisa, unable to take care of herself. However, patient says she wants to go home. PT/OT to evaluate DNR/DNI Regular diet VTE PPx: Hold for now; consider starting after pt seen by Ortho Admission and Anticipated Discharge Date Admission Date: June 24, 2023 Subjective Patient seen and examined, wants to go home Pain is under good control Review of Systems Review of Systems: All systems reviewed are negative, apart from the ones contained in the history. Physical Exam Physical Exam: The patient is awake, alert and oriented 3, well developed and well nourished, normocephalic and atraumatic, lying in bed and in no acute distress. HEENT--PERRL, EOMI, mucous membranes and oropharynx mildly dry Neck--supple. No JVD. No bruits. Thyroid normal, trachea midline, no adenopathy. Heart--normal S1 and S2. No murmurs, rubs or gallops. Lungs--clear bilaterally, no respiratory distress, no accessory muscle use. Abdomen--normal bowel sounds and soft. Mild epigastric and left sided abdominal pain Extremities--left foot in cast Dermatologic--normal skin turgor, normal color, no abnormal lymph nodes, no rash. Neurologic--cranial nerves II through XII grossly intact. Rheumatologic--normal range of motion. Psychiatric--normal affect. Results & Data Results & Data Vital Signs (Past 12 Hours) Vital Signs Temp Pulse Resp BP Pulse Ox O2 Del Method 06/26/23 07:24 97.5 F L 69 18 126/74 98 Room Air PG Care Time/CCT Total # of Minutes Spent Total Time Spent with Patient: Total time spent is greater than 50% in coordination of care (as documented) at patient's floor/unit and/or counseling patient: Coding Level of Care Code 31381 SUB INP/OBS CARE 235MIN Diagnoses Closed fracture of metacarpal bone, neck S62.339A Dementia F03.90 Time Spent (min) 35
--- NOTE | 2023-06-26 17:54 | Orthopedic Progress Note ---
Date of Service June 26, 2023 Assessment & Plan (1) Closed fracture of neck of metatarsal bone of left foot: Plan: Closed metatarsal neck fractures of the second, third and fourth metatarsals. Nonoperative management with low tide walking boot. Limited weightbearing with walker. Patient tolerated physical therapy well. Awaiting disposition to extended care facility. Apply ice to the left foot daily. Follow-up in 3 to 4 weeks after discharge from [facility] with Dr. Correia with x-rays left foot at that time for reassessment of left foot metatarsal fractures. Thank you for the opportunity to consult in the care of this patient. Salazar Correia DO [facility] orthopedic [place] [phone] Admission and Anticipated Discharge Date Admission Date: June 24, 2023 Subjective Patient seen and examined while on rounds. Tolerating the left lower extremity walker boot. Able to limit weightbearing with use of a walker as recommended. Pain well-controlled. Physical Exam Constitutional: WD/WN, vitals as above Eyes: PERRL, conjunctivae normal, anicteric sclerae ENMT: external ear and nose normal, oropharynx normal Neck: trachea midline, no thyromegaly Respiratory: normal respiratory effort, lungs clear to auscultation Gastrointestinal (Abdomen): Abdomen soft, nontender and nondistended. Normal bowel sounds. Musculoskeletal: Left lower extremity focused exam demonstrates skin which is warm, dry and intact. Edema has improved somewhat compared to yesterday exam. Patient tolerating walker boot without difficulty. Continued tenderness to palpation at the second, third and fourth metatarsal necks. Distal neurovascular status is intact. Compartments are soft. Dalia's negative. Skin: no rashes, warm and dry Psychiatric: Features consistent with dementia. Somewhat pleasantly confused. Lymphatic: no cervical or axillary lymphadenopathy Results & Data Vital Signs (Past 12 Hours) Vital Signs Temp Pulse Resp BP Pulse Ox O2 Del Method 06/26/23 14:38 36.4 C L 62 18 162/67 H 98 Room Air 06/26/23 07:24 36.4 C L 69 18 126/74 98 Room Air (1) Closed fracture of neck of metatarsal bone of left foot Encounter type: initial encounter Qualified Code(s): S92.302A - Fracture of unspecified metatarsal bone(s), left foot, initial encounter for closed fracture
[2023-06-26] MEDS: MELATONIN 3 MG TAB PO PRN (20:02)
[2023-06-26] MEDS: DONEPEZIL HCL 10 MG TAB PO SCH (20:02)
--- NOTE | 2023-06-27 06:42 | Electrocardiogram Report ---
Test Reason : Blood Pressure : / mmHG Vent. Rate : 061 BPM Atrial Rate : 061 BPM P-R Int : 156 ms QRS Dur : 082 ms QT Int : 438 ms P-R-T Axes : 074 049 081 degrees QTc Int : 440 ms Normal sinus rhythm with sinus arrhythmia Normal ECG No previous ECGs available Confirmed by Jatinder Harry ([id number]) on 06/27/2023 6:41:47 AM Referred By: REFERRED SELF Confirmed By:Jatinder Harry
[2023-06-27] MEDS: hydroCHLOROthiazide 25 MG TAB PO SCH (08:51)
[2023-06-27] MEDS: lisinopril 20 MG TAB PO SCH (08:51)
--- NOTE | 2023-06-27 11:12 | Hospitalist Progress Note ---
Date of Service June 27, 2023 Assessment & Plan (1) Closed fracture of metacarpal bone, neck: Plan: Patient fell and injured left foot 3 weeks ago L Ankle x-ray revealed soft tissue swelling without evidence of acute fracture L Foot x-ray revealed second through fourth metatarsal neck fracture Boot placed on left foot in the ED Ortho consulted, no need for surgery. Continue boot and weight bearing with a walker Acetaminophen 650 mg p.o. q4h as needed for pain Patient will need rehab (2) Dementia: Plan: Continue donepezil Plan Disposition: Patient lives by herself and according to sister Eloisa, unable to take care of herself. However, patient says she wants to go home. PT/OT to evaluate, she will need rehab DNR/DNI Regular diet VTE PPx: Hold for now; consider starting after pt seen by Ortho Admission and Anticipated Discharge Date Admission Date: June 27, 2023 Subjective Patient seen and examined today, weightbearing as tolerated, left boot in situ, walking with a walker Review of Systems Review of Systems: All systems reviewed are negative, apart from the ones contained in the history. Physical Exam Physical Exam: The patient is awake, alert and oriented 3, well developed and well nourished, normocephalic and atraumatic, lying in bed and in no acute distress. HEENT--PERRL, EOMI, mucous membranes and oropharynx mildly dry Neck--supple. No JVD. No bruits. Thyroid normal, trachea midline, no adenopath y. Heart--normal S1 and S2. No murmurs, rubs or gallops. Lungs--clear bilaterally, no respiratory distress, no accessory muscle use. Abdomen--normal bowel sounds and soft. Mild epigastric and left sided abdominal pain Extremities--left foot in cast Dermatologic--normal skin turgor, normal color, no abnormal lymph nodes, no rash. Neurologic--cranial nerves II through XII grossly intact. Rheumatologic--normal range of motion. Psychiatric--normal affect. Results & Data Results & Data Vital Signs (Past 12 Hours) Vital Signs Temp Pulse Resp BP Pulse Ox O2 Del Method 06/27/23 07:30 98.4 F 73 16 126/74 97 Room Air PG Care Time/CCT Total # of Minutes Spent Total Time Spent with Patient: Total time spent is greater than 50% in coordination of care (as documented) at patient's floor/unit and/or counseling patient: Coding Level of Care Code 96368 SUB INP/OBS CARE MIN Diagnoses Closed fracture of metacarpal bone, neck S62.339A Dementia F03.90 Time Spent (min) 35
[2023-06-27] MEDS: MELATONIN 3 MG TAB PO PRN (20:02)
[2023-06-27] MEDS: DONEPEZIL HCL 10 MG TAB PO SCH (20:03)
[2023-06-28 07:00] LABS: Hematocrit (blood only) 40.5 % (37.0-47.0); Hemoglobin 13.7 g/dl (12.0-16.0); Mean Corpuscular Hemoglobin 30.7 pg (25.0-34.0); Mean Corpuscular Hgb Conc 33.8 g/dL (32.0-36.0); Mean Corpuscular Volume 90.8 fL (80.0-100.0); Mean Platelet Volume 10.8 fL (9.4-12.4); Platelet Count 261 K/uL (130-400); RDW Coefficient of Variation 13.1 % (11.5-14.5); RDW Standard Deviation 42.9 fL (36.4-46.3); Red Blood Count 4.46 M/uL (4.20-5.40); White Blood Count 5.76 K/ul (4.8-10.8)
[2023-06-28 07:15] LABS: BUN Creatinine Ratio 33.3 (10-20); Calcium 9.5 mg/dl (8.6-10.3); Creatinine Clr Calc Pharmacy 35.4 ml/min; Est GFR (African American) 68.9 ml/min; Est GFR (Non-African American) 59.5 ml/min; Potassium 3.3 mmol/L (3.5-5.1)
[2023-06-28] MEDS: lisinopril 20 MG TAB PO SCH (08:16)
[2023-06-28] MEDS: hydroCHLOROthiazide 25 MG TAB PO SCH (08:16)
[2023-06-28] MEDS ORDERED: POLYETHYLENE (MIRALAX) 17 GM PACK PO PRN (09:42)
--- NOTE | 2023-06-28 10:56 | Hospitalist Progress Note ---
Date of Service June 28, 2023 Assessment & Plan (1) Closed fracture of metacarpal bone, neck: Plan: Patient fell and injured left foot 3 weeks prior to presentation L Ankle x-ray revealed soft tissue swelling without evidence of acute fracture L Foot x-ray revealed second through fourth metatarsal neck fracture Boot placed on left foot in the ED Ortho consulted, no need for surgery. Continue boot and weight bearing with a walker Acetaminophen 650 mg p.o. q4h as needed for pain Patient will need rehab (2) Dementia: Plan: Continue donepezil Plan Disposition: Patient lives by herself and according to sister Eloisa, unable to take care of herself. However, patient says she wants to go home. PT/OT to evaluate, she will need rehab DNR/DNI Regular diet VTE PPx: Hold for now; consider starting after pt seen by Ortho Admission and Anticipated Discharge Date Admission Date: June 27, 2023 Subjective Patient seen and examined today, weightbearing as tolerated, left boot in situ, walking with a walker Review of Systems Review of Systems: All systems reviewed are negative, apart from the ones contained in the history. Physical Exam Physical Exam: The patient is awake, alert and oriented 3, well developed and well nourished, normocephalic and atraumatic, lying in bed and in no acute distress. HEENT--PERRL, EOMI, mucous membranes and oropharynx mildly dry Neck--supple. No JVD. No bruits. Thyroid normal, trachea midline, no adenopathy. Heart--normal S1 and S2. No murmurs, rubs or gallops. Lungs--clear bilaterally, no respiratory distress, no accessory muscle use. Abdomen--normal bowel sounds and soft. Mild epigastric and left sided abdominal pain Extremities--left foot in cast Dermatologic--normal skin turgor, normal color, no abnormal lymph nodes, no rash. Neurologic--cranial nerves II through XII grossly intact. Rheumatologic--normal range of motion. Psychiatric--normal affect. Results & Data Results & Data Vital Signs (Past 12 Hours) Vital Signs Temp Pulse Resp BP Pulse Ox O2 Del Method 06/28/23 07:51 97.5 F L 63 15 154/75 H 98 Room Air PG Care Time/CCT Total # of Minutes Spent Total Time Spent with Patient: Total time spent is greater than 50% in coordination of care (as documented) at patient's floor/unit and/or counseling patient: Coding Level of Care Code 66632 SUB INP/OBS CARE 2/35MIN Diagnoses Closed fracture of metacarpal bone, neck S62.339A Dementia F03.90 Time Spent (min) 35
[2023-06-28] MEDS: SODIUM CHLORIDE 0.9% 1,000 ML IV SCH (14:31)
[2023-06-28] MEDS: MELATONIN 3 MG TAB PO PRN (20:12)
[2023-06-28] MEDS: DONEPEZIL HCL 10 MG TAB PO SCH (20:12)
[2023-06-29] MEDS: SODIUM CHLORIDE 0.9% 1,000 ML IV SCH ×2 (01:10→10:46)
[2023-06-29] MEDS: lisinopril 20 MG TAB PO SCH (08:02)
[2023-06-29] MEDS: hydroCHLOROthiazide 25 MG TAB PO SCH (08:02)
[2023-06-29 10:53] LABS: BUN Creatinine Ratio 25.7 (10-20); Calcium 9.3 mg/dl (8.6-10.3); Creatinine Clr Calc Pharmacy 41.6 ml/min; Est GFR (African American) 83.8 ml/min; Est GFR (Non-African American) 72.3 ml/min; Potassium 3.1 mmol/L (3.5-5.1)
--- NOTE | 2023-06-29 13:01 | Hospitalist Progress Note ---
Date of Service June 29, 2023 Assessment & Plan (1) Closed fracture of metacarpal bone, neck: Plan: Patient fell and injured left foot 3 weeks prior to presentation L Ankle x-ray revealed soft tissue swelling without evidence of acute fracture L Foot x-ray revealed second through fourth metatarsal neck fracture Boot placed on left foot in the ED Ortho consulted, no need for surgery. Continue boot and weight bearing with a walker Acetaminophen 650 mg p.o. q4h as needed for pain Patient will need rehab, d/c when approved (2) Dementia: Plan: Continue donepezil Plan Disposition: Patient lives by herself and according to sister Eloisa, unable to take care of herself. However, patient says she wants to go home. PT/OT to evaluate, she will need rehab DNR/DNI Regular diet VTE PPx: Hold for now; consider starting after pt seen by Ortho Admission and Anticipated Discharge Date Admission Date: June 27, 2023 Subjective Patient seen and examined today, weightbearing as tolerated, left boot in situ, walking with a walker Review of Systems Review of Systems: All systems reviewed are negative, apart from the ones contained in the history. Physical Exam Physical Exam: The patient is awake, alert and oriented 3, well developed and well nourished, normocephalic and atraumatic, lying in bed and in no acute distress. HEENT--PERRL, EOMI, mucous membranes and oropharynx mildly dry Neck--supple. No JVD. No bruits. Thyroid normal, trachea midline, no adenopathy. Heart--normal S1 and S2. No murmurs, rubs or gallops. Lungs--clear bilaterally, no respiratory distress, no accessory muscle use. Abdomen--normal bowel sounds and soft. Mild epigastric and left sided abdominal pain Extremities--left foot in cast Dermatologic--normal skin turgor, normal color, no abnormal lymph nodes, no rash. Neurologic--cranial nerves II through XII grossly intact. Rheumatologic--normal range of motion. Psychiatric--normal affect. Results & Data Results & Data Vital Signs (Past 12 Hours) Vital Signs Temp Pulse Resp BP Pulse Ox O2 Del Method 06/29/23 07:08 97.3 F L 69 18 188/69 H 98 Room Air PG Care Time/CCT Total # of Minutes Spent Total Time Spent with Patient: Total time spent is greater than 50% in coordination of care (as documented) at patient's floor/unit and/or counseling patient: Coding Level of Care Code 07430 SUB INP/OBS CARE MIN Diagnoses Closed fracture of metacarpal bone, neck S62.339A Dementia F03.90 Time Spent (min) 35
[2023-06-29] MEDS: DONEPEZIL HCL 10 MG TAB PO SCH (20:26)
[2023-06-29] MEDS: MELATONIN 3 MG TAB PO PRN (20:26)
[2023-06-30 08:06] LABS: Hematocrit (blood only) 41.5 % (37.0-47.0); Hemoglobin 13.3 g/dl (12.0-16.0); Mean Corpuscular Hemoglobin 30.1 pg (25.0-34.0); Mean Corpuscular Volume 93.9 fL (80.0-100.0); Mean Platelet Volume 10.8 fL (9.4-12.4); Platelet Count 255 K/uL (130-400); RDW Coefficient of Variation 13.2 % (11.5-14.5); RDW Standard Deviation 45.1 fL (36.4-46.3); Red Blood Count 4.42 M/uL (4.20-5.40); White Blood Count 6.52 K/ul (4.8-10.8)
[2023-06-30 08:29] LABS: Calcium 9.4 mg/dl (8.6-10.3); Creatinine Clr Calc Pharmacy 43.9 ml/min; Est GFR (African American) 89.7 ml/min; Est GFR (Non-African American) 77.4 ml/min; Potassium 3.4 mmol/L (3.5-5.1)
[2023-06-30] MEDS: lisinopril 20 MG TAB PO SCH (09:52)
[2023-06-30] MEDS: hydroCHLOROthiazide 25 MG TAB PO SCH (09:52)
--- NOTE | 2023-06-30 11:29 | Hospitalist Progress Note ---
Date of Service June 30, 2023 Assessment & Plan (1) Closed fracture of metacarpal bone, neck: Plan: Patient fell and injured left foot 3 weeks prior to presentation L Ankle x-ray revealed soft tissue swelling without evidence of acute fracture L Foot x-ray revealed second through fourth metatarsal neck fracture Boot placed on left foot in the ED Ortho consulted, no need for surgery. Continue boot and weight bearing with a walker Acetaminophen 650 mg p.o. q4h as needed for pain Patient will need rehab, d/c when approved (2) Dementia: Plan: Continue donepezil Plan Disposition: Patient lives by herself and according to sister in law Eloisa, unable to take care of herself. However, patient says she wants to go home. PT/OT to evaluate, she will need rehab DNR/DNI Regular diet VTE PPx: Hold for now; consider starting after pt seen by Ortho Admission and Anticipated Discharge Date Admission Date: June 27, 2023 Subjective Patient seen and examined today, weightbearing as tolerated, left boot in situ, walking with a walker Review of Systems Review of Systems: All systems reviewed are negative, apart from the ones contained in the history. Physical Exam Physical Exam: The patient is awake, alert and oriented 3, well developed and well nourished, normocephalic and atraumatic, lying in bed and in no acute distress. HEENT--PERRL, EOMI, mucous membranes and oropharynx mildly dry Neck--supple. No JVD. No bruits. Thyroid normal, trachea midline, no adenopathy. Heart--normal S1 and S2. No murmurs, rubs or gallops. Lungs--clear bilaterally, no respiratory distress, no accessory muscle use. Abdomen--normal bowel sounds and soft. Mild epigastric and left sided abdominal pain Extremities--left foot in cast Dermatologic--normal skin turgor, normal color, no abnormal lymph nodes, no rash. Neurologic--cranial nerves II through XII grossly intact. Rheumatologic--normal range of motion. Psychiatric--normal affect. Results & Data Results & Data Vital Signs (Past 12 Hours) Vital Signs Temp Pulse Resp BP Pulse Ox O2 Del Method 06/30/23 07:53 97.9 F 67 18 159/80 H 97 Room Air PG Care Time/CCT Total # of Minutes Spent Total Time Spent with Patient: Total time spent is greater than 50% in coordination of care (as documented) at patient's floor/unit and/or counseling patient: Coding Level of Care Code 08141 SUB INP/OBS CARE MIN Diagnoses Closed fracture of metacarpal bone, neck S62.339A Dementia F03.90 Time Spent (min) 35
[2023-06-30] MEDS: MELATONIN 3 MG TAB PO PRN (19:39)
[2023-06-30] MEDS: DONEPEZIL HCL 10 MG TAB PO SCH (19:39)
[2023-07-01] MEDS: lisinopril 20 MG TAB PO SCH (08:20)
[2023-07-01] MEDS: hydroCHLOROthiazide 25 MG TAB PO SCH (08:20)
[2023-07-01 08:57] LABS: Hematocrit (blood only) 40.2 % (37.0-47.0); Hemoglobin 13.6 g/dl (12.0-16.0); Mean Corpuscular Hemoglobin 30.9 pg (25.0-34.0); Mean Corpuscular Hgb Conc 33.8 g/dL (32.0-36.0); Mean Corpuscular Volume 91.4 fL (80.0-100.0); Mean Platelet Volume 10.4 fL (9.4-12.4); Platelet Count 245 K/uL (130-400); RDW Coefficient of Variation 13.2 % (11.5-14.5); RDW Standard Deviation 43.6 fL (36.4-46.3); White Blood Count 5.93 K/ul (4.8-10.8)
[2023-07-01 09:14] LABS: BUN Creatinine Ratio 30.4 (10-20); Calcium 9.5 mg/dl (8.6-10.3); Creatinine Clr Calc Pharmacy 38.9 ml/min; Est GFR (African American) 77.5 ml/min; Est GFR (Non-African American) 66.8 ml/min; Potassium 3.3 mmol/L (3.5-5.1)
--- NOTE | 2023-07-01 18:45 | Hospitalist Progress Note ---
Date of Service July 01, 2023 Assessment & Plan (1) Closed fracture of metacarpal bone, neck: Plan: Fractures involving left second, third, fourth metatarsals. Nonoperative intervention indicated by orthopedic surgery. Orthopedic consultation and management appreciated. She is now in a left foot walking boot. (2) Dementia: Plan: Stable. Continue donepezil Plan [facility]ful discharge [facility] tomorrowJuly 02 Admission and Anticipated Discharge Date Admission Date: June 27, 2023 Subjective Alert and oriented. No distress. Multiple left foot metatarsal fractures did not require operative intervention. She is now in a walking boot. Hopeful discharge to [facility] tomorrow, July 02 Review of Systems 2 Review of Systems: Constitutional-no fever or chills ENT-no blurred vision, no double vision, no epistaxis, no sore throat Respiratory-no cough, no wheezing, no shortness of breath Cardiac-no palpitations, no chest pain, no syncope GI-no nausea, vomiting, diarrhea, melena, hematochezia -no urinary retention, no urinary incontinence, no dysuria, no hematuria Musculoskeletal-no joint pain, no muscle tenderness. Left foot walking boot in place Skin-no bruising, no rashes, no pruritus Neuro-no isolated weakness, no paresthesia, no weakness Psych-no depression, no anxiety Physical Exam 2 Physical Exam: General-alert and oriented x3, no fevers, no chills HEENT-head atraumatic and normocephalic, pupils equal and reactive to light, extraocular muscles intact Neck-no lymphadenopathy or thyromegaly, trachea midline Chest-clear to auscultation percussion. No rales wheezing or rhonchi Cardiac-regular rate and rhythm, normal S1 and S2 Abdomen-normal bowel sounds, nontender, no hepatosplenomegaly Extremities-left foot walking boot in place. No edema noted right lower extremity Neuro-cranial nerves II through XII intact, motor and sensory function within normal limits, strength symmetrical, no focal deficits Psych-normal affect, normal mood Results & Data Results & Data Vital Signs (Past 12 Hours) Vital Signs Temp Pulse Resp BP Pulse Ox O2 Del Method 07/01/23 15:56 36.9 C 67 18 127/60 98 Room Air 07/01/23 08:10 36.5 C 66 16 126/70 96 Room Air 07/01/23 07:45 Room Air Laboratory Results 07/01/23 08:38 07/01/23 08:38 PG Care Time/CCT Total # of Minutes Spent Total Time Spent with Patient: Total time spent is greater than 50% in coordination of care (as documented) at patient's floor/unit and/or counseling patient: Coding Level of Care Code 84643 SUB INP/OBS CARE 3/50MIN Diagnoses Closed fracture of metacarpal bone, neck S62.339A Dementia F03.90
[2023-07-01] MEDS: MELATONIN 3 MG TAB PO PRN (20:08)
[2023-07-01] MEDS: DONEPEZIL HCL 10 MG TAB PO SCH (20:08)
[2023-07-01] MEDS: HEPARIN SOD 5,000 UNIT/0.5 ML VIAL SQ SCH (20:08)
[2023-07-02] MEDS: lisinopril 20 MG TAB PO SCH (07:59)
[2023-07-02] MEDS: hydroCHLOROthiazide 25 MG TAB PO SCH (08:00)
[2023-07-02] MEDS: HEPARIN SOD 5,000 UNIT/0.5 ML VIAL SQ SCH ×2 (08:00→20:18)
[2023-07-02] MEDS ORDERED: INFLUENZA VACCINE HIGH-DOSE (HD-IIV4) PF 65+ 0.7mL SYR IM ONE (12:04)
--- NOTE | 2023-07-02 16:36 | Hospitalist Progress Note ---
Date of Service July 02, 2023 Assessment & Plan (1) Closed fracture of metacarpal bone, neck: Plan: Fractures involving left second, third, fourth metatarsals. Nonoperative intervention indicated by orthopedic surgery. Orthopedic consultation and management appreciated. She is now in a left foot walking boot. (2) Dementia: Plan: Stable. Continue donepezil Plan She is medically stable. SNF placement when arrangements are finalized Admission and Anticipated Discharge Date Admission Date: June 27, 2023 Subjective Alert and oriented. No new problems. Afebrile with stable vital signs. Awaiting SNF placement Review of Systems 2 Review of Systems: Constitutional-no fever or chills ENT-no blurred vision, no double vision, no epistaxis, no sore throat Respiratory-no cough, no wheezing, no shortness of breath Cardiac-no palpitations, no chest pain, no syncope GI-no nausea, vomiting, diarrhea, melena, hematochezia -no urinary retention, no urinary incontinence, no dysuria, no hematuria Musculoskeletal-no joint pain, no muscle tenderness. Left foot walking boot in place Skin-no bruising, no rashes, no pruritus Neuro-no isolated weakness, no paresthesia, no weakness Psych-no depression, no anxiety Physical Exam 2 Physical Exam: General-alert and oriented x3, no fevers, no chills HEENT-head atraumatic and normocephalic, pupils equal and reactive to light, extraocular muscles intact Neck-no lymphadenopathy or thyromegaly, trachea midline Chest-clear to auscultation percussion. No rales wheezing or rhonchi Cardiac-regular rate and rhythm, normal S1 and S2 Abdomen-normal bowel sounds, nontender, no hepatosplenomegaly Extremities-left foot walking boot in place. No edema noted right lower extremity Neuro-cranial nerves II through XII intact, motor and sensory function within normal limits, strength symmetrical, no focal deficits Psych-normal affect, normal mood Results & Data Results & Data Vital Signs (Past 12 Hours) Vital Signs Temp Pulse Resp BP Pulse Ox O2 Del Method 07/02/23 14:36 36.6 C 65 16 124/68 96 Room Air 07/02/23 07:22 36.6 C 66 16 127/69 96 Room Air Laboratory Results 07/01/23 08:38 07/01/23 08:38 PG Care Time/CCT Total # of Minutes Spent Total Time Spent with Patient: Total time spent is greater than 50% in coordination of care (as documented) at patient's floor/unit and/or counseling patient: Coding Level of Care Code 82216 SUB INP/OBS CARE 235MIN Diagnoses Closed fracture of metacarpal bone, neck S62.339A Dementia F03.90
[2023-07-02] MEDS: MELATONIN 3 MG TAB PO PRN (20:18)
[2023-07-02] MEDS: DONEPEZIL HCL 10 MG TAB PO SCH (20:18)
[2023-07-02 21:47] VITALS: RESP 18
[2023-07-03 07:49] VITALS: TEMP 97.7; O2SAT 98
[2023-07-03] MEDS: HEPARIN SOD 5,000 UNIT/0.5 ML VIAL SQ SCH (08:25)
[2023-07-03] MEDS: hydroCHLOROthiazide 25 MG TAB PO SCH (08:25)
[2023-07-03] MEDS: lisinopril 20 MG TAB PO SCH (08:25)
--- NOTE | 2023-07-03 15:19 | Discharge Summary ---
Date of Service July 03, 2023 Admission HPI Per Admitting Provider Sonya is an 88-year-old female with PMH of HTN, dementia, NPH, and osteopenia. She presented for left foot/ankle pain x3 weeks. Patient reportedly fell 3 weeks ago while getting up at night to go to the bathroom, and rolled her left foot backwards. She denies hitting her head. No LOC. No other history of falls, per patient. Patient ambulates with a cane/walker at baseline, but was not using it at the time of the fall. Patient lives alone. She reports that she was able to get back up after the fall. She has been taking Tylenol for the pain (1 to 2 tablets daily) and Voltaren gel. The pain is located in her left ankle and left toes. She rates the pain 2/10, and is only exacerbated by movement. No radiation beyond the ankle. She does not know if she took her morning medications. She denies the need for pain medication at present. Left foot x-ray on arrival revealed second through fourth metatarsal neck fractures. Patient exhibits hypertension at 181/77 on admission; vitals otherwise stable. ED course: Lisinopril 20 mg p.o. ROS: Patient endorses frequent urination, and LLE pain. Patient denies fever, chills, chest pain, SOB, abdominal pain, N/V, or burning with urination. No PMHx of [place], DVT/PE, cancer, CVA, diabetes Social hx: No smoking Minimal social alcohol use No recreational drug use Patient's [id number] (Eloisa) is present at the bedside and provides additional history. She also confirms patient's code status as DNR/DNI, as patient does not exhibit capacity due to underlying dementia. Principal Diagnosis Multiple left foot metatarsal fractures of second, third, fourth metatarsal ray Discharge Exam General-alert and oriented x3, no fevers, no chills HEENT-head atraumatic and normocephalic, pupils equal and reactive to light, extraocular muscles intact Neck-no lymphadenopathy or thyromegaly, trachea midline Chest-clear to auscultation percussion. No rales wheezing or rhonchi Cardiac-regular rate and rhythm, normal S1 and S2 Abdomen-normal bowel sounds, nontender, no hepatosplenomegaly Extremities-left foot walking boot in place. No edema noted right lower extremity Neuro-cranial nerves II through XII intact, motor and sensory function within normal limits, strength symmetrical, no focal deficits Psych-normal affect, normal mood Discharge Data Allergies Allergy/AdvReac Type Severity Reaction Status Date / Time Ibandronate Sodium TABS AdvReac Intermediate Unknown Uncoded 06/24/23 18:30 Consultations 06/24/23 17:47 ED Decision to Admit Stat 06/24/23 20:45 Consult Orthopedic Surgery Routine Hospital Course (1) Closed fracture of metacarpal bone, neck: Fractures involving left second, third, fourth metatarsals. Nonoperative intervention indicated by orthopedic surgery. Orthopedic consultation and management appreciated. She is now in a left foot walking boot. (2) Dementia: Stable. Continue donepezil Plan Discharge to [facility] today, July 03 Total Time Total Time Spent Total Time Spent (In Minutes): 45 minutes Discharge Plan Discharge Items Patient Disposition: Transfer Senior Living Fac Reason For Visit: R ANKLE / FOOT PAIN Discharge Diagnosis: foot fracture Condition on Discharge: Good Activity: Resume your previous activity Weightbearing Comment: weight bearing with walker Non-emergency contact: Primary Care Provider Call non-emergency contact if: you have any medication questions Follow-up/Referrals: Clark Machuca DO [Primary Care Provider] - Diet: Regular Addtl Attending Provider Instructions: Continue with low tide walking boot. Limited weightbearing with walker. Apply ice to the left foot daily. Follow-up in 3 to 4 weeks after discharge with Dr. Correia with x-rays left foot at that time for reassessment Pending Studies at Discharge: No Stand-Alone Forms: My [employer], Smoking Cessation Skilled Items Patient informed of condition?: Yes DNR: Yes Discharge Level of Care: Skilled Communicable Disease: No Discharge Prognosis: Stable Lines: None Urinary Catheter: No Medications and DC Order Prescriptions: New hydrochlorothiazide 25 mg Tablet 25 mg PO QAM 30 Days Qty: 30 0RF Continued lisinopril 20 mg tablet 20 mg PO DAILY Qty: 90 3RF donepezil 10 mg tablet 10 mg PO HS 30 Days Qty: 30 5RF acetaminophen 500 mg Tablet 500 mg PO Q6H PRN (Reason: Pain) Discharge Orders: Discharge Order (Routine); Ordered 07/03/23 Ordered By: Constantine Sanchez Admission Data Admit Date/Time: 06/27/23 07:39 Attending Provider: Constantine Sanchez Admit Provider: Twin Ng Primary Care Provider: Clark Machuca Other Providers: Abiodun Palencia; Salazar Correia; [place]; Will Neil [facility] Coding Level of Care Code 02818 INP/OBS DISCH >30 MIN Diagnoses Closed fracture of metacarpal bone, neck S62.339A Dementia F03.90
[2023-07-03 15:40] VITALS: BP 121/70; PULSE 88
== END 2023-07-03 16:20 | DRG 563 ==
LOC: ED 15:10 → EDINP 15:10 → SUATTDRO 19:40 → EDINP 21:18 → 3E 22:15 → SUATTDRO 06-27 07:39
DX: G47.33 Obstructive sleep apnea (adult) (pediatric); Z66 Do not resuscitate; F03.90 Unspecified dementia, unspecified severity, without behavioral disturbance, psychotic disturbance, mood disturbance, and anxiety; S92.322A Displaced fracture of second metatarsal bone, left foot, initial encounter for closed fracture; Y92.013 Bedroom of single-family (private) house as the place of occurrence of the external cause; S92.342A Displaced fracture of fourth metatarsal bone, left foot, initial encounter for closed fracture; Z60.2 Problems related to living alone; S92.332A Displaced fracture of third metatarsal bone, left foot, initial encounter for closed fracture; I10 Essential (primary) hypertension; W06.XXXA Fall from bed, initial encounter; Z88.8 Allergy status to other drugs, medicaments and biological substances

== ENCOUNTER 2023-10-20 21:25 | Inpatient (IN) ==
[2023-10-20 22:25] LABS: Basophils # (auto) 0.03 K/uL (0.00-0.20); Basophils % (auto) 0.4 %; Eosinophils # (auto) 0.08 K/uL (0.00-0.50); Eosinophils % (auto) 0.9 %; Hematocrit (blood only) 37.4 % (37.0-47.0); Hemoglobin 12.9 g/dl (12.0-16.0); Immature Granulocytes # (auto) 0.05 K/uL (0.01-0.20); Immature Granulocytes % (auto) 0.6 %; Lymphocytes # (auto) 1.83 K/uL (1.20-3.40); Lymphocytes % (auto) 21.4 %; Mean Corpuscular Hemoglobin 30.1 pg (25.0-34.0); Mean Corpuscular Hgb Conc 34.5 g/dL (32.0-36.0); Mean Corpuscular Volume 87.4 fL (80.0-100.0); Mean Platelet Volume 9.8 fL (9.4-12.4); Monocytes # (auto) 1.29 K/uL (0.11-0.59); Monocytes % (auto) 15.1 %; Neutrophils # (auto) 5.29 K/uL (1.40-6.50); Neutrophils % (auto) 61.6 %; Platelet Count 287 K/uL (130-400); RDW Coefficient of Variation 12.5 % (11.5-14.5); RDW Standard Deviation 39.9 fL (36.4-46.3); Red Blood Count 4.28 M/uL (4.20-5.40); White Blood Count 8.57 K/ul (4.8-10.8)
[2023-10-20 22:43] LABS: Albumin Globulin Ratio 1.3 (0.9-2); Albumin Level 3.7 gm/dl (3.4-5.0); BUN Creatinine Ratio 29.5 (10-20); Bilirubin,Total 0.5 mg/dl (0.2-1.0); Calcium 8.6 mg/dl (8.6-10.3); Creatinine Clr Calc Pharmacy 36.6 ml/min; Est GFR (Non-African American) 58.7 ml/min; Globulin 2.9 gm/dl (2.5-4.0); Potassium 3.3 mmol/L (3.5-5.1); Total Protein 6.6 gm/dl (6.0-8.3)
--- NOTE | 2023-10-20 22:51 | Emergency Department Note ---
History of Present Illness General Chief complaint: Fall Stated complaint: FALL W/ HIP FRACTURE Time Seen by Provider: 10/20/23 21:34 History of Present Illness This 88-year-old female from the intermediate presents the ER complaining of left hip pain for the past few days after falling a few days ago. Patient denies chest pain, dyspnea, headache, numbness, tingling, localized weakness. Home Medications Medication Instructions Recorded Confirmed Type lisinopril 20 mg tablet 20 mg PO DAILY #90 tabs 02/26/22 06/24/23 Rx donepezil 10 mg tablet 10 mg PO HS 30 days #30 tabs 04/19/23 06/24/23 Rx acetaminophen 325 mg tablet 650 mg PO Q6H PRN PAIN/FEVER 10/20/23 10/20/23 History (Tylenol) hydrochlorothiazide 25 mg tablet 25 mg PO QAM 10/20/23 10/20/23 History Allergies Allergy/AdvReac Type Severity Reaction Status Date / Time ibandronate sodium Allergy Unknown ON [facility]ENTRE Verified 10/20/23 22:51 CARE MED LIST Past Med/Surg History Medical History Mesenteric artery stenosis Osteopenia DEXA (01/19) with minimum T-score -1.2 involving femur. 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 Obstructive sleep apnea (~2009) Using dental appliance Hypertension Surgical History History of tonsillectomy Family History Mother Hypertension Father Hypertension Stroke Denies family history of Colon cancer Ovarian cancer Prostate cancer Myocardial infarction Breast cancer Social History Smoking Status: Never smoker Second Hand Exposure: No; Do You Dip or Chew Tobacco: No; Hx Alcohol Use: No Hx Substance Use: No Preferred Language: Nepali Communication Ability: Effective Visual Impairment: Limited Hearing Ability: Hard of Hearing Cardiovascular Technologist Required: No Beliefs That Will Affect Care: None marital status: Single Current Living Situation: Alone current occupational status: retired How many Children do You have: 0 Feels Safe at Home: Yes Childhood Exposure to Second-Hand Smoke: No Diet: regular Diet Comment: Boost caffeine: Yes Dental Care, Regularly: Yes Physical Activity Frequency: 1-2 Times per Week Seatbelt Use: always Sunscreen Use: Yes Assistive Devices: Cane and Walker Review of Systems A total of 10 systems reviewed and were otherwise negative Physical Exam Vital Signs Vital Signs - 24 hr 10/20/23 21:34 10/20/23 21:43 Temperature 36.8 C Temperature Source Oral Pulse Rate 75 72 Respiratory Rate 22 Blood Pressure 139/66 Blood Pressure Mean 90 Pulse Oximetry 94 Oxygen Delivery Method Room Air Sepsis Recent Fever Within 48 Hours No Sepsis New/Unexplained Change in Mental Status No Sepsis Action Taken by Nursing No Action Required VITALS: Vitals are noted on the nurse's note and reviewed by myself. Vital signs stable. GENERAL: Pleasant female, in no acute distress, nondiaphoretic, well-developed well-nourished. SKIN: The skin was without rashes, erythema, edema, or bruising. There is no tenting of the skin. Capillary reflex less than 2 seconds. HEAD: Normocephalic atraumatic. EARS: External auditory canals clear EYES: Pupils equal round and reactive to light and accommodation. Conjunctivae without injection, sclerae without icterus. Extraocular movements intact. NOSE: Patent, no discharge. MOUTH: Mucous membranes mildly dry pharynx without erythema or exudate. Uvula midline. Airway patent. Tongue does not deviate. NECK: Supple without nuchal rigidity. No lymphadenopathy. No thyromegaly. Cervical spine is nontender. No JVD. HEART: Regular rate and rhythm LUNGS: Clear to auscultation bilaterally without wheezes, rales or rhonchi. No retractions or accessory muscle use. ABDOMEN: Positive bowel sounds x 4. Normal tympanic percussion. Soft, nontender, without masses or organomegaly. Andrews sign negative. No guarding or rebound tenderness. No CVA tenderness MUSCULOSKELETAL: No muscle atrophy, erythema, or edema noted. No thoracic or lumbar tenderness. Left hip tender to palpation with increased pain with movement. Shortened and externally rotated. Right hip nontender with full range of motion. Pedal pulses +2 equal and present bilaterally. NEURO: Patient was alert and oriented to person place and time. Normal sensation to light and sharp touch. No focal neurological deficits. Medical Decision Making Medical Records Attestation: I reviewed the patient's medical records. Home Medications Current Medication List: was personally reviewed by me Laboratory Data Attestation: I reviewed the patient's lab results. 10/20/23 21:37 10/20/23 21:37 Lab Results 10/20/23 Range/Units 21:37 WBC 8.57 (4.8-10.8) K/ul RBC 4.28 (4.20-5.40) M/uL Hgb 12.9 (12.0-16.0) g/dl Hct 37.4 (37.0-47.0) % MCV 87.4 (80.0-100.0) fL MCH 30.1 (25.0-34.0) pg MCHC 34.5 (32.0-36.0) g/dL RDW Std Deviation 39.9 (36.4-46.3) fL RDW Coeff of Federico 12.5 (11.5-14.5) % Plt Count 287 (130-400) K/uL MPV 9.8 (9.4-12.4) fL Immature Gran % (Auto) 0.6 % Neut % (Auto) 61.6 % Lymph % (Auto) 21.4 % Clarke % (Auto) 15.1 % Eos % (Auto) 0.9 % Baso % (Auto) 0.4 % Neut # (Auto) 5.29 (1.40-6.50) K/uL Lymph # (Auto) 1.83 (1.20-3.40) K/uL Clarke # (Auto) 1.29 H (0.11-0.59) K/uL Eos # (Auto) 0.08 (0.00-0.50) K/uL Baso # (Auto) 0.03 (0.00-0.20) K/uL Immature Gran # (Auto) 0.05 (0.01-0.20) K/uL Sodium 129 L (136-145) mmol/L Potassium 3.3 L (3.5-5.1) mmol/L Chloride 95 L (98-107) mmol/L Carbon Dioxide 23 (21-32) mmol/L Anion Gap 11 (3-11) BUN 26 H (6-23) mg/dl Creatinine 0.88 (0.6-1.2) mg/dl Est Cr Clr Drug Dosing 36.6 ml/min Est GFR ( Amer) 68.0 ml/min Est GFR (Non-Af Amer) 58.7 ml/min BUN/Creatinine Ratio 29.5 H (10-20) Glucose 109 H (70-99(Fasting)) mg/dl Calcium 8.6 (8.6-10.3) mg/dl Total Bilirubin 0.5 (0.2-1.0) mg/dl AST 28 (13-39) U/L ALT 34 (7-52) U/L Alkaline Phosphatase 56 (34-104) U/L Total Creatine Kinase 104 (26-192) U/L Total Protein 6.6 (6.0-8.3) gm/dl Albumin 3.7 (3.4-5.0) gm/dl Globulin 2.9 (2.5-4.0) gm/dl Albumin/Globulin Ratio 1.3 (0.9-2) Imaging Data Attestation: I personally reviewed and interpreted this imaging study as follows: [facility] Narrative Prior records reviewed and summarized above. Triage Nursing notes reviewed. Additional history obtained from nursing. The patient's history was concerning for fall. Differential diagnosis: Etiologies such as fracture, dislocation, neurovascular compromise, compartment syndrome, soft tissue injury, as well as others were entertained. Physical examination: Consistent with an isolated hip injury. ER treatment provided: IV lock IV fluids, Strickland catheter NPO Bedrest On reassessment the patient felt better. Diagnostics interpreted by me: ECG: Ordered for preop EKG: Normal sinus, normal intervals, no acute ST-T wave changes. Impression normal sinus rhythm independently interpreted by myself I think arrhythmia is unlikely. EKG shows normal sinus rhythm with no interval abnormalities such as QT prolongation or WPW. There are no findings to suggest Brugada syndrome. Cardiac monitoring in the emergency department reveals no tachycardic or bradycardic dysrhythmia. Hypertrophic cardiomyopathy was considered but there are no clear historical elements pointing toward this. EKG is not suggestive. The QRS voltage is not extremely large and there are no suggestive Q waves. The labs Independently Interpreted by myself revealed hyponatremia and osmolarity levels were ordered Stable H&H Imaging studies: Xrays of the hip are concerning for left hip fracture per my independent interpretation Chest x-ray with no acute consolidation, pneumothorax or free air per my independent interpretation The patient has an isolated hip fracture and will need admission to the hospital. Patient sodium was also slightly low. Osmolarity levels were sent. Thyroid level was ordered. She was given normal saline. Medicine was consulted and case discussed. She will be admitted to the medical service for further evaluation and workup. Consultation: A consultation was placed with hospitalist. The case was discussed and diagnostics were reviewed. The patient was evaluated in the ER for further treatment. The chart was completed utilizing [employer] Speech voice recognition software. Grammatical errors, random word insertions, pronoun errors, and incomplete sentences are an occassional consequence of this system due to software limitations, ambient noise, and hardware issues. Any formal questions or concerns about the content, text, or information contained within the body of this dictation should be directly addressed to the physician prosthetic assistant for clarification. Impression & Plan Closed fracture of left hip, Acute hyponatremia Discharge Plan Visit Data Chief Complaint: Fall Stated Complaint: FALL W/ HIP FRACTURE ED Provider: Clark Noe ED Midlevel Provider: Jennifer Sesay Discharge Problem: Closed fracture of left hip, Acute hyponatremia Patient Disposition: Admitted As Inpatient Condition: Fair Forms Stand Alone Forms: [facility] [employer] Prescriptions Prescriptions: No Action lisinopril 20 mg tablet 20 mg PO DAILY Qty: 90 3RF donepezil 10 mg tablet 10 mg PO HS 30 Days Qty: 30 5RF acetaminophen 500 mg Tablet 500 mg PO Q6H PRN (Reason: Pain) Referrals Referrals: PCP,NO [Primary Care Provider] - Discharge Problem: Closed fracture of left hip Qualifiers: Encounter type: initial encounter Qualified Code(s): S72.002A - Fracture of unspecified part of neck of left femur, initial encounter for closed fracture
[2023-10-20] MEDS: SODIUM CHLORIDE 0.9% 250 ML IV ONE (23:08)
[2023-10-20 23:13] LABS: INR 0.9 (0.9-1.1); Partial Thromboplastin Time 29 Seconds (21-31); Prothrombin Time 10.3 Seconds (9.0-12.0)
--- NOTE | 2023-10-20 23:18 | History & Physical Report ---
Date of Service October 20, 2023 Assessment & Plan (1) Closed fracture of left hip: Plan: 88yo female with unwitnessed fall on 10/18/23 presenting with left hip pain, inability to bear weight. X-ray imaging with femoral neck fracture. Patient ambulatory with use of a cane and walker prior to fall. -Admit to medical -Maintain NPO -IVF with LR at 80mL/hr -Pain control with Tylenol and Morphine PRN -Zofran PRN nausea -Bowel regimen PRN -Orthopedic Surgery consultation appreciated -Will hold AM HCTZ and Lisinopril pre-operatively -Will obtain non-contrast CT of the head and cervical spine following unwitnessed fall. Patient unable to provide details of fall (2) Acute hyponatremia: Plan: Zn=952 -Check urine serum and osm -Continue IVF for now - LR at 80mL/hr -Repeat chemistry in AM (3) Hypertension: Plan: Blood pressure mildly elevated -Holding Lisinopril and HCTZ pre-operatively -Monitor BP (4) Dementia: Plan: Patient oriented to self. -Continue Aricept -Frequent orientation, maintenance of sleep/wake cycle where able and avoidance of delirium inducing agents as able F/E/N - LR at 80mL/hr x 2L, K repletion with 40meq PO, repeat chemistry in AM Ppx - SCDs Code - DNR - confirmed with patient's sister, Eloisa [phone] Dispo - Admit to medical History of Present Illness Chief Complaint: left hip fracture Primary Care Provider: NO PCP Sonya Foster is a pleasant 88yo female with history of dementia presenting from [facility] with a left hip fracture. Patient is poor historian due to u nderlying dementia and is unable to provide clear details of the events prior to arrival. History obtained primarily through chart review, discussion with ER staff and patient's sister, Eloisa Foster. Patient with unwitnessed fall on 10/18/23, found down. Her sister was notified on 10/19/23 of the fall. Patient with ongoing left hip pain, inability to walk or bear weight. She does not clearly remember the fall. No complaints at this time - specifically denies chest pain, palpitations, cough, SOB, [place] or neck pain. Prior to the fall patient was ambulating with use of a walker and a cane. In the ER she is afebrile, HD stable, NAD ER Course: Tylenol 1gm IV Allergies Allergy/AdvReac Type Severity Reaction Status Date / Time ibandronate sodium Allergy Unknown ON CENTRE Verified 10/20/23 22:51 CARE MED LIST Home Medications Medication Instructions Recorded Confirmed Type lisinopril 20 mg tablet 20 mg PO DAILY #90 tabs 02/26/22 10/20/23 Rx donepezil 10 mg tablet 10 mg PO HS 30 days #30 tabs 04/19/23 10/20/23 Rx acetaminophen 325 mg tablet 650 mg PO Q6H PRN PAIN/FEVER 10/20/23 10/20/23 History (Tylenol) hydrochlorothiazide 25 mg tablet 25 mg PO QAM 10/20/23 10/20/23 History Past Med/Surg History Medical History Mesenteric artery stenosis Osteopenia DEXA (01/19) with minimum T-score -1.2 involving femur. 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 Obstructive sleep apnea (~2009) Using dental appliance Hypertension Surgical History History of tonsillectomy Family History Mother Hypertension Father Hypertension Stroke Denies family history of Colon cancer Ovarian cancer Prostate cancer Myocardial infarction Breast cancer Social History Smoking Status: Never smoker Second Hand Exposure: No; Do You Dip or Chew Tobacco: No; Hx Alcohol Use: No Hx Substance Use: No Preferred Language: Lao Communication Ability: Effective Visual Impairment: Limited Hearing Ability: Hard of Hearing Rn Hospital Required: No Beliefs That Will Affect Care: None marital status: Single Current Living Situation: Alone current occupational status: retired How many Children do You have: 0 Feels Safe at Home: Yes Childhood Exposure to Second-Hand Smoke: No Diet: regular Diet Comment: Boost caffeine: Yes Dental Care, Regularly: Yes Physical Activity Frequency: 1-2 Times per Week Seatbelt Use: always Sunscreen Use: Yes Assistive Devices: Cane and Walker Review of Systems Review of Systems: All systems reviewed & are unremarkable except as noted in HPI & below Physical Exam Physical Exam: General: patient pleasantly demented, resting comfortably, NAD, non-toxic in appearance, AA&O to self Skin: warm, dry, intact, no rashes or lesions, no bruising HEENT: NC/AT, PERRL, EOMI, anicteric sclera, conjunctiva without injection, external ear normal to inspection and nontender, nares patent, moist mucus membranes, dentition intact, no oropharyngeal lesions, neck supple, trachea midline, no LAD, no thyromegaly, no JVD. No cervical spine tenderness or step- off Heart: +S1/S2, regular, no m/r/g Lungs: equal air entry bilaterally, no rales/rhonchi/wheezes Abd: +BS, soft, NT/ND, no masses/organomegaly/ascites Ext: warm, 2+ pulses in UE/LE bilaterally, no clubbing/cyanosis or edema LLE shortened, external rotation. Left leg smaller than right Neuro: grossly nonfocal, moving all extremities - limited LLE movement secondary to pain Results & Data Results & Data Vital Signs (Past 12 Hours) Vital Signs Temp Pulse Pulse Resp BP BP Pulse Ox 10/20/23 23:13 73 22 142/65 H 95 10/20/23 21:43 72 10/20/23 21:34 36.8 C 75 22 139/66 94 O2 Del Method 10/20/23 23:13 Room Air 10/20/23 21:43 10/20/23 21:34 Room Air Laboratory Results Laboratory Results WBC 8.57 K/ul (4.8-10.8) 10/20/23 21:37 RBC 4.28 M/uL (4.20-5.40) 10/20/23 21:37 Hgb 12.9 g/dl (12.0-16.0) 10/20/23 21:37 Hct 37.4 % (37.0-47.0) 10/20/23 21:37 MCV 87.4 fL (80.0-100.0) 10/20/23 21:37 MCH 30.1 pg (25.0-34.0) 10/20/23 21:37 MCHC 34.5 g/dL (32.0-36.0) 10/20/23 21:37 RDW Std Deviation 39.9 fL (36.4-46.3) 10/20/23 21:37 RDW Coeff of Federico 12.5 % (11.5-14.5) 10/20/23 21:37 Plt Count 287 K/uL (130-400) 10/20/23 21:37 MPV 9.8 fL (9.4-12.4) 10/20/23 21:37 Immature Gran % (Auto) 0.6 % 10/20/23 21:37 Neut % (Auto) 61.6 % 10/20/23 21:37 Lymph % (Auto) 21.4 % 10/20/23 21:37 Pike % (Auto) 15.1 % 10/20/23 21:37 Eos % (Auto) 0.9 % 10/20/23 21:37 Baso % (Auto) 0.4 % 10/20/23 21:37 Neut # (Auto) 5.29 K/uL (1.40-6.50) 10/20/23 21:37 Lymph # (Auto) 1.83 K/uL (1.20-3.40) 10/20/23 21:37 Pike # (Auto) 1.29 K/uL (0.11-0.59) H 10/20/23 21:37 Eos # (Auto) 0.08 K/uL (0.00-0.50) 10/20/23 21:37 Baso # (Auto) 0.03 K/uL (0.00-0.20) 10/20/23 21:37 Immature Gran # (Auto) 0.05 K/uL (0.01-0.20) 10/20/23 21:37 PT 10.3 Seconds (9.0-12.0) 10/20/23 21:37 INR 0.9 (0.9-1.1) 10/20/23 21:37 APTT 29 Seconds (21-31) 10/20/23 21:37 PTT Ratio 1.0 10/20/23 21:37 Sodium 129 mmol/L (136-145) L 10/20/23 21:37 Potassium 3.3 mmol/L (3.5-5.1) L 10/20/23 21:37 Chloride 95 mmol/L (98-107) L 10/20/23 21:37 Carbon Dioxide 23 mmol/L (21-32) 10/20/23 21:37 Anion Gap 11 (3-11) 10/20/23 21:37 BUN 26 mg/dl (6-23) H 10/20/23 21:37 Creatinine 0.88 mg/dl (0.6-1.2) 10/20/23 21:37 Est Cr Clr Drug Dosing 36.6 ml/min 10/20/23 21:37 Est GFR ( Amer) 68.0 ml/min 10/20/23 21:37 Est GFR (Non-Af Amer) 58.7 ml/min 10/20/23 21:37 BUN/Creatinine Ratio 29.5 (10-20) H 10/20/23 21:37 Glucose 109 mg/dl (70-99(Fasting)) H 10/20/23 21:37 Calcium 8.6 mg/dl (8.6-10.3) 10/20/23 21:37 Total Bilirubin 0.5 mg/dl (0.2-1.0) 10/20/23 21:37 AST 28 U/L (13-39) 10/20/23 21:37 ALT 34 U/L (7-52) 10/20/23 21:37 Alkaline Phosphatase 56 U/L (34-104) 10/20/23 21:37 Total Creatine Kinase 104 U/L (26-192) 10/20/23 21:37 Total Protein 6.6 gm/dl (6.0-8.3) 10/20/23 21:37 Albumin 3.7 gm/dl (3.4-5.0) 10/20/23 21:37 Globulin 2.9 gm/dl (2.5-4.0) 10/20/23 21:37 Albumin/Globulin Ratio 1.3 (0.9-2) 10/20/23 21:37 Diagnostic Findings CXR - per my interpretation, no obvious infiltrate, edema or pneumothorax. No fractures or bone deformities. No prior study available for comparison ECG Additional Comments: EKG per my interpretatin - NSR at 71, normal axis, PU=042, QRS=76, VHu=922, no acute ischemic changes Code Status & VTE Plan VTE Prophylaxis Plan VTE Prophylaxis will be ordered: Yes PG Care Time/CCT Total # of Minutes Spent Total Time Spent with Patient: Total time spent is greater than 50% in coordination of care (as documented) at patient's floor/unit and/or counseling patient: Coding Level of Care Code 80224 INT INP/OBS CARE MIN Diagnoses Closed fracture of left hip S72.002A Encounter type: initial encounter Acute hyponatremia E87.1 Hypertension I10 Dementia F03.90 (1) Closed fracture of left hip Encounter type: initial encounter Qualified Code(s): S72.002A - Fracture of unspecified part of neck of left femur, initial encounter for closed fracture
[2023-10-20 23:21] LABS: Appearance Urine Cloudy (Clear); Bacteria Urine Automated Negative (Negative); Bilirubin Urine Negative (Negative); Blood Urine Trace (Negative); Color Urine Yellow; Glucose Urine UA Negative (Negative); Ketones Urine Negative (Negative); Leukocyte Esterase Urine 2+ (Negative); Nitrite Urine Negative (Negative); Protein Urine Trace (Negative); RBC Urine Automated 0-4 /hpf (0-4); Specific Gravity Urine 1.018 (1.000-1.030); Urobilinogen Urine Negative (Negative); WBC Urine Automated >30 /hpf (0-5); pH Urine 5.5 (4.5-7.5)
[2023-10-20] MEDS: ACETAMINOPHEN 1,000 MG/100 ML VIAL IV STA (23:26)
[2023-10-20 23:33] LABS: Thyroid Stimulating Hormone 1.906 uIu/ml (0.300-4.500)
[2023-10-21] MEDS: DONEPEZIL HCL 10 MG TAB PO STA (00:20)
[2023-10-21] MEDS ORDERED: MAGNESIUM HYDROXIDE SUSP 30 ML UDC PO PRN (00:55)
[2023-10-21] MEDS ORDERED: NALOXONE HCL 0.4 MG/1 ML VIAL/CARP IV PRN (00:55)
[2023-10-21] MEDS ORDERED: bisacodyL 10 MG SUPP PR PRN (00:55)
[2023-10-21] MEDS ORDERED: ONDANSETRON INJ 2 MG/ML 2 ML VIAL IV PRN ×2 (00:55→15:42)
[2023-10-21 01:20] LABS: Magnesium 1.9 mg/dl (1.7-2.4)
[2023-10-21] MEDS: POTASSIUM CHLORIDE CRTAB 20 MEQ TABCR PO STA (01:25)
[2023-10-21] MEDS: LACTATED RINGER'S 1,000 ML IV SCH (01:25)
--- NOTE | 2023-10-21 01:43 | CT Scan Report ---
Exam(s): CT C SPINE EXAM: CT Cervical Spine Without Intravenous Contrast CLINICAL HISTORY: Reason for exam: Unwitnessed fall. TECHNIQUE: Axial computed tomography images of the cervical spine without intravenous contrast. CTDI is 37.78 mGy and DLP is 624.41 mGy-cm. Automated exposure control was utilized for the study. A dose lowering technique was utilized adhering to the principles of ALARA. COMPARISON: No relevant prior studies available. FINDINGS: The vertebral body heights are maintained. The craniocervical junction is intact. The atlanto-dens interval is maintained. The dens is intact. There is no spondylolisthesis. Multilevel cervical spondylosis and degenerative disc disease. Straightening of the cervical lordosis. The unenhanced neck soft tissues are grossly unremarkable. The visualized lung apices are grossly clear. IMPRESSION: No acute fracture or subluxation of the cervical spine. Electronically signed by: Tono Romero MD 10/21/23 01:42 AM
--- NOTE | 2023-10-21 01:43 | CT Scan Report ---
Exam(s): CT HEAD Without Contrast EXAM: CT Head Without Intravenous Contrast CLINICAL HISTORY: Reason for exam: unwitnessed fall. TECHNIQUE: Axial computed tomography images of the head/brain without intravenous contrast. CTDI is 37.78 mGy and DLP is 624.41 mGy-cm. Automated exposure control was utilized for the study. A dose lowering technique was utilized adhering to the principles of ALARA. COMPARISON: No relevant prior studies available. FINDINGS: No acute intracranial hemorrhage. No midline shift or mass effect. The territorial robert-white matter differentiation is maintained throughout. Age-related cerebral volume loss. Periventricular and subcortical white matter hypoattenuation, consistent with chronic microangiopathy. The visualized orbits appear grossly unremarkable. The calvarium is intact. The visualized paranasal sinuses and mastoid air cells are grossly clear. IMPRESSION: No acute intracranial hemorrhage, midline shift, or mass effect. Electronically signed by: Tono Romero MD 10/21/23 01:42 AM
[2023-10-21] MEDS: ACETAMINOPHEN 500 MG TAB PO PRN (05:16)
[2023-10-21 07:04] LABS: Hematocrit (blood only) 35.2 % (37.0-47.0); Hemoglobin 12.2 g/dl (12.0-16.0); Mean Corpuscular Hgb Conc 34.7 g/dL (32.0-36.0); Mean Corpuscular Volume 86.7 fL (80.0-100.0); Mean Platelet Volume 9.7 fL (9.4-12.4); Platelet Count 229 K/uL (130-400); RDW Coefficient of Variation 12.3 % (11.5-14.5); RDW Standard Deviation 39.5 fL (36.4-46.3); Red Blood Count 4.06 M/uL (4.20-5.40); White Blood Count 9.42 K/ul (4.8-10.8)
--- NOTE | 2023-10-21 07:04 | XRay Report ---
SINGLE VIEW CHEST CLINICAL HISTORY: Preoperative examination. Hip fracture. FINDINGS: An AP, portable, semierect chest radiograph is obtained. No prior studies are available for comparison at the time of dictation. The heart is top normal for projection noting atherosclerotic c alcification of the thoracic aorta. Nonspecific interstitial thickening is likely chronic. There is b ibasilar scarring/atelectasis. No airspace consolidation or large pleural effusion is identified. No pneumothorax is seen. The skeletal structures are osteopenic. Bony thorax is grossly intact. IMPRESSION: No active disease in the chest. ACT 112: Negative or not required by law. Electronically signed by: Anil Mcfarlane M.D. 10/21/2023 7:03 AM
--- NOTE | 2023-10-21 07:06 | XRay Report ---
SINGLE VIEW PELVIS; 2 VIEWS LEFT HIP CLINICAL HISTORY: Fall. Hip injury. FINDINGS: An AP view of the pelvis with AP and frog-leg views of the left hip are compared to study d ated 08/30/2009. The skeletal structures are osteopenic. There is an impacted subcapital fracture of t he left proximal femur with overlying soft tissue edema. No additional acute fracture is seen involvi ng the right hip or the bony pelvis. Mild to moderate arthritic change and joint space narrowing is s een in the hips. There is degenerative sclerosis of the sacroiliac joints. Lumbosacral spondylosis an d scoliosis is partially visualized. Phleboliths are noted in the pelvis. There is atherosclerotic ca lcification of the femoral arteries. IMPRESSION: Impacted subcapital fracture of the left proximal femur. Electronically signed by: Anil Mcfarlane M.D. 10/21/2023 7:05 AM
[2023-10-21 07:18] LABS: BUN Creatinine Ratio 29.4 (10-20); Calcium 8.2 mg/dl (8.6-10.3); Creatinine Clr Calc Pharmacy 47.3 ml/min; Est GFR (African American) 90.5 ml/min; Est GFR (Non-African American) 78.1 ml/min; Potassium 3.6 mmol/L (3.5-5.1)
--- NOTE | 2023-10-21 08:52 | Electrocardiogram Report ---
Test Reason : Blood Pressure : / mmHG Vent. Rate : 071 BPM Atrial Rate : 071 BPM P-R Int : 164 ms QRS Dur : 076 ms QT Int : 408 ms P-R-T Axes : 065 053 104 degrees QTc Int : 443 ms Normal sinus rhythm Nonspecific T wave abnormality Abnormal ECG When compared with ECG of 25-JUN-2023 13:14, No significant change was found Confirmed by Zack Pina ([id number]) on 10/21/2023 8:52:10 AM Referred By: REFERRED SELF Confirmed By:Elmo Pina
--- NOTE | 2023-10-21 10:30 | Orthopedic Consultation ---
Date of Consultation October 21, 2023 Assessment & Plan (1) Closed fracture of left hip: Left subcapital hip fracture. Patient will require ORIF of her left hip. Case will be discussed with [facility] [place]. Plans to be to try and get her fracture fixed in the next 24 to 48 hours. This was discussed with the patient's family. Patient currently n.p.o. History of Present Illness Reason for Consultation: Left hip fracture Attending Physician: Abiodun Trammell MD History of Present Illness Patient is an 88-year-old female with past medical history of hypertension, obstructive sleep apnea, mesenteric artery stenosis, and osteopenia who resides at [facility]. Patient is a household ambulator at the facility with use of assistive devices. Her fdexpw-sb-piv is with her today. History is difficult with the patient's underlying dementia. She is answering some questions appropriately. Her jsmoxa-ec-wlr gives most of the history today. The patient was apparently found night after an unwitnessed fall. Over the next several days the patient was actually doing some ambulation but complaining of left hip discomfort. Patient was being assisted by the staff there for ambulation. Into the weekend, the patient was soon unable to weight- bear on the left hip and they brought her into the emergency room to be seen. X-rays were taken and it was found that she had a left subcapital hip fracture. She was thusly admitted by the hospitalist service for further care. Currently she is lying in bed awake and alert. She is somewhat pleasantly confused but having some pain with hip spasm off and on. He complains mostly of left hip pain when she moves. Allergies Allergy/AdvReac Type Severity Reaction Status Date / Time ibandronate sodium Allergy Unknown ON CENTRE Verified 10/20/23 22:51 CARE MED LIST Home Medications Medication Instructions Recorded Confirmed Type lisinopril 20 mg tablet 20 mg PO DAILY #90 tabs 02/26/22 10/20/23 Rx donepezil 10 mg tablet 10 mg PO HS 30 days #30 tabs 04/19/23 10/20/23 Rx acetaminophen 325 mg tablet 650 mg PO Q6H PRN PAIN/FEVER 10/20/23 10/20/23 History (Tylenol) hydrochlorothiazide 25 mg tablet 25 mg PO QAM 10/20/23 10/20/23 History Patient History Medical History Mesenteric artery stenosis Osteopenia DEXA (01/19) with minimum T-score -1.2 involving femur. 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 Obstructive sleep apnea (~2009) Using dental appliance Hypertension Surgical History History of tonsillectomy Family History Mother Hypertension Father Hypertension Stroke Denies family history of Colon cancer Ovarian cancer Prostate cancer Myocardial infarction Breast cancer Social History Smoking Status: Never smoker Second Hand Exposure: No; Do You Dip or Chew Tobacco: No; Hx Alcohol Use: No Hx Substance Use: No Preferred Language: Libyan Communication Ability: Effective Visual Impairment: Limited Hearing Ability: Hard of Hearing Director Of Student Financial Services Required: No Beliefs That Will Affect Care: None marital status: Single Current Living Situation: Alone Current Living Situation Comment: Lives at [facility]. current occupational status: retired How many Children do You have: 0 Feels Safe at Home: Yes Childhood Exposure to Second-Hand Smoke: No Diet: regular Diet Comment: Boost caffeine: Yes Dental Care, Regularly: Yes Physical Activity Frequency: 1-2 Times per Week Seatbelt Use: always Sunscreen Use: Yes Assistive Devices: Hospital Bed Physical Exam Physical Exam: Patient is an 88-year-old white female who appears her stated age. She is pleasantly confused and cooperative. No acute distress. She is having some mild pain in the left hip On examination of the left lower extremity, when the patient tries to move her hip she has moderate pain in the left hip and groin. She denies any pain on palpation of her left knee or her left ankle. She was having some mild discomfort of her shoulders and her tibdqr-xo-ioq states that she has been sore since the fall. Her left lower extremity is externally rotated and the hip is kept in a flexed position for comfort. Mild attempts to move the left hip causes her moderate pain. She does not complain of any pain over the right hip, knee, ankle. Upper extremities although somewhat sore from the fall, however essentially nontender at the shoulders, elbows, and wrists. She is moving her upper extremities appropriately. There appears to be no gross motor or sensory loss seen at this time. Results & Data Vital Signs (Past 12 Hours) Vital Signs Temp Pulse Pulse Pulse Resp BP BP 10/21/23 07:56 36.4 C L 68 14 176/63 H 10/21/23 00:40 10/21/23 00:40 36.5 C 73 16 169/66 H 10/21/23 00:16 80 20 132/56 L 10/20/23 23:13 73 22 142/65 H Pulse Ox Pulse Ox O2 Del Method O2 Del Method 10/21/23 07:56 98 Room Air 10/21/23 00:40 95 Room Air 10/21/23 00:40 95 Room Air 10/21/23 00:16 96 Room Air 10/20/23 23:13 95 Room Air Laboratory Results Laboratory Results WBC 9.42 K/ul (4.8-10.8) 10/21/23 06:09 RBC 4.06 M/uL (4.20-5.40) L 10/21/23 06:09 Hgb 12.2 g/dl (12.0-16.0) 10/21/23 06:09 Hct 35.2 % (37.0-47.0) L 10/21/23 06:09 MCV 86.7 fL (80.0-100.0) 10/21/23 06:09 MCH 30.0 pg (25.0-34.0) 10/21/23 06:09 MCHC 34.7 g/dL (32.0-36.0) 10/21/23 06:09 RDW Std Deviation 39.5 fL (36.4-46.3) 10/21/23 06:09 RDW Coeff of Federico 12.3 % (11.5-14.5) 10/21/23 06:09 Plt Count 229 K/uL (130-400) 10/21/23 06:09 MPV 9.7 fL (9.4-12.4) 10/21/23 06:09 Immature Gran % (Auto) 0.6 % 10/20/23 21:37 Neut % (Auto) 61.6 % 10/20/23 21:37 Lymph % (Auto) 21.4 % 10/20/23 21:37 [place] % (Auto) 15.1 % 10/20/23 21:37 Eos % (Auto) 0.9 % 10/20/23 21:37 Baso % (Auto) 0.4 % 10/20/23 21:37 Neut # (Auto) 5.29 K/uL (1.40-6.50) 10/20/23 21:37 Lymph # (Auto) 1.83 K/uL (1.20-3.40) 10/20/23 21:37 [place] # (Auto) 1.29 K/uL (0.11-0.59) H 10/20/23 21:37 Eos # (Auto) 0.08 K/uL (0.00-0.50) 10/20/23 21:37 Baso # (Auto) 0.03 K/uL (0.00-0.20) 10/20/23 21:37 Immature Gran # (Auto) 0.05 K/uL (0.01-0.20) 10/20/23 21:37 PT 10.3 Seconds (9.0-12.0) 10/20/23 21:37 INR 0.9 (0.9-1.1) 10/20/23 21:37 APTT 29 Seconds (21-31) 10/20/23 21:37 PTT Ratio 1.0 10/20/23 21:37 Sodium 128 mmol/L (136-145) L 10/21/23 06:09 Potassium 3.6 mmol/L (3.5-5.1) 10/21/23 06:09 Chloride 98 mmol/L (98-107) 10/21/23 06:09 Carbon Dioxide 23 mmol/L (21-32) 10/21/23 06:09 Anion Gap 7 (3-11) 10/21/23 06:09 BUN 20 mg/dl (6-23) 10/21/23 06:09 Creatinine 0.68 mg/dl (0.6-1.2) 10/21/23 06:09 Est Cr Clr Drug Dosing 47.3 ml/min 10/21/23 06:09 Est GFR ( Amer) 90.5 ml/min 10/21/23 06:09 Est GFR (Non-Af Amer) 78.1 ml/min 10/21/23 06:09 BUN/Creatinine Ratio 29.4 (10-20) H 10/21/23 06:09 Glucose 101 mg/dl (70-99(Fasting)) H 10/21/23 06:09 Osmolality 274 mOsm/kg (280-300) L 10/20/23 21:37 Calcium 8.2 mg/dl (8.6-10.3) L 10/21/23 06:09 Magnesium 1.9 mg/dl (1.7-2.4) 10/20/23 21:37 Total Bilirubin 0.5 mg/dl (0.2-1.0) 10/20/23 21:37 AST 28 U/L (13-39) 10/20/23 21:37 ALT 34 U/L (7-52) 10/20/23 21:37 Alkaline Phosphatase 56 U/L (34-104) 10/20/23 21:37 Total Creatine Kinase 104 U/L (26-192) 10/20/23 21:37 Total Protein 6.6 gm/dl (6.0-8.3) 10/20/23 21:37 Albumin 3.7 gm/dl (3.4-5.0) 10/20/23 21:37 Globulin 2.9 gm/dl (2.5-4.0) 10/20/23 21:37 Albumin/Globulin Ratio 1.3 (0.9-2) 10/20/23 21:37 TSH 1.906 uIu/ml (0.300-4.500) 10/20/23 21:37 Urine Color Yellow 10/20/23 22:40 Urine Appearance Cloudy (Clear) A 10/20/23 22:40 Urine pH 5.5 (4.5-7.5) 10/20/23 22:40 Ur Specific [place] 1.018 (1.000-1.030) 10/20/23 22:40 Urine Protein Trace (Negative) H 10/20/23 22:40 Urine Glucose (UA) Negative (Negative) 10/20/23 22:40 Urine Ketones Negative (Negative) 10/20/23 22:40 Urine Blood Trace (Negative) H 10/20/23 22:40 Urine Nitrite Negative (Negative) 10/20/23 22:40 Urine Bilirubin Negative (Negative) 10/20/23 22:40 Urine Urobilinogen Negative (Negative) 10/20/23 22:40 Ur Leukocyte Esterase 2+ (Negative) H 10/20/23 22:40 Urine WBC (Auto) >30 /hpf (0-5) H 10/20/23 22:40 Urine RBC (Auto) 0-4 /hpf (0-4) 10/20/23 22:40 U Hyaline Cast (Auto) 10-30 /lpf (0-5) H 10/20/23 22:40 U Epithel Cells (Auto) 10-20 /lpf (0-5) H 10/20/23 22:40 Urine Bacteria (Auto) Negative (Negative) 10/20/23 22:40 Urine Osmolality 535 mOsm/kg (500-800) 10/20/23 22:40 Impressions Hip/Pelvis X-Ray 10/20/23 21:48 SINGLE VIEW PELVIS; 2 VIEWS LEFT HIP CLINICAL HISTORY: Fall. Hip injury. FINDINGS: An AP view of the pelvis with AP and frog-leg views of the left hip are compared to study dated 08/30/2009. The skeletal structures are osteopenic. There is an impacted subcapital fracture of the left proximal femur with overlying soft tissue edema. No additional acute fracture is seen involving the right hip or the bony pelvis. Mild to moderate arthritic change and joint space narrowing is seen in the hips. There is degenerative sclerosis of the sacroiliac joints. Lumbosacral spondylosis and scoliosis is partially visualized. Phleboliths are noted in the pelvis. There is atherosclerotic calcification of the femoral arteries. IMPRESSION: Impacted subcapital fracture of the left proximal femur. Electronically signed by: Anil Mcfarlane M.D. 10/21/2023 7:05 AM Chest X-Ray 10/20/23 21:49 SINGLE VIEW CHEST CLINICAL HISTORY: Preoperative examination. Hip fracture. FINDINGS: An AP, portable, semierect chest radiograph is obtained. No prior studies are available for comparison at the time of dictation. The heart is top normal for projection noting atherosclerotic calcification of the thoracic aorta. Nonspecific interstitial thickening is likely chronic. There is bibasilar scarring/atelectasis. No airspace consolidation or large pleural effusion is identified. No pneumothorax is seen. The skeletal structures are osteopenic. Bony thorax is grossly intact. IMPRESSION: No active disease in the chest. ACT 112: Negative or not required by law. Electronically signed by: Anil Mcfarlane M.D. 10/21/2023 7:[address] 10/20/23 23:29 Exam(s): CT C SPINE EXAM: CT Cervical Spine Without Intravenous Contrast CLINICAL HISTORY: Reason for exam: Unwitnessed fall. TECHNIQUE: Axial computed tomography images of the cervical spine without intravenous contrast. CTDI is 37.78 mGy and DLP is 624.41 mGy-cm. Automated exposure control was utilized for the study. A dose lowering technique was utilized adhering to the principles of ALARA. COMPARISON: No relevant prior studies available. FINDINGS: The vertebral body heights are maintained. The craniocervical junction is intact. The atlanto-dens interval is maintained. The dens is intact. There is no spondylolisthesis. Multilevel cervical spondylosis and degenerative disc disease. Straightening of the cervical lordosis. The unenhanced neck soft tissues are grossly unremarkable. The visualized lung apices are grossly clear. IMPRESSION: No acute fracture or subluxation of the cervical spine. Electronically signed by: Tono Romero MD 10/21/23 01:[address] 10/20/23 23:29 Exam(s): CT HEAD Without Contrast EXAM: CT Head Without Intravenous Contrast CLINICAL HISTORY: Reason for exam: unwitnessed fall. TECHNIQUE: Axial computed tomography images of the head/brain without intravenous contrast. CTDI is 37.78 mGy and DLP is 624.41 mGy-cm. Automated exposure control was utilized for the study. A dose lowering technique was utilized adhering to the principles of ALARA. COMPARISON: No relevant prior studies available. FINDINGS: No acute intracranial hemorrhage. No midline shift or mass effect. The territorial robert-white matter differentiation is maintained throughout. Age-related cerebral volume loss. Periventricular and subcortical white matter hypoattenuation, consistent with chronic microangiopathy. The visualized orbits appear grossly unremarkable. The calvarium is intact. The visualized paranasal sinuses and mastoid air cells are grossly clear. IMPRESSION: No acute intracranial hemorrhage, midline shift, or mass effect. Electronically signed by: Tono Romero MD 10/21/23 01:42 AM (1) Closed fracture of left hip Encounter type: initial encounter Qualified Code(s): S72.002A - Fracture of unspecified part of neck of left femur, initial encounter for closed fracture
[2023-10-21] MEDS: MoRPHine SULFATE 2 MG/ML CARP IV PRN ×2 (12:08→15:22)
--- NOTE | 2023-10-21 14:47 | Anesthesiology Consultation ---
Date of Service October 21, 2023 Assessment & Plan (1) Encounter for pre-operative examination: Chart Review Chart Review: Acceptable Risk for Surgery and Patient NOT seen in Pre Admission Testing Consults Requested none History Surgery Operation Date: 10/21/23 08:40 Proposed Procedures p Left Hip Open Reduction Interal Fixation - Ernesto Noble MD Height/Weight Height: 5 ft 3 in Weight: 55.9 kg Allergies Allergy/AdvReac Type Severity Reaction Status Date / Time ibandronate sodium Allergy Unknown ON CENTRE Verified 10/20/23 22:51 CARE MED LIST Medications Home Medications Medication Instructions Recorded Confirmed Last Taken lisinopril 20 mg tablet 20 mg PO DAILY #90 tabs 02/26/22 10/20/23 10/20/23 donepezil 10 mg tablet 10 mg PO HS 30 days #30 tabs 04/19/23 10/20/23 10/20/23 acetaminophen 325 mg tablet 650 mg PO Q6H PRN PAIN/FEVER 10/20/23 10/20/23 10/19/23 (Tylenol) hydrochlorothiazide 25 mg tablet 25 mg PO QAM 10/20/23 10/20/23 10/20/23 Active Medications Generic Name Dose Route Start Last Admin Trade Name Freq PRN Reason Stop Dose Admin Acetaminophen 1,000 mg 10/21/23 00:55 10/21/23 05:16 Acetaminophen 500 Mg Tab PO 11/20/23 00:54 1,000 mg Q8H PRN Administration Pain & Pre PT Lactated Ringer's 1,000 mls @ 50 mls/hr 10/21/23 00:55 10/21/23 12:51 Lr IV 10/22/23 10:33 50 mls/hr .Q20H STEVEN Administration Morphine Sulfate 1 mg 10/21/23 00:55 10/21/23 12:08 Morphine Sulfate 2 Mg/Ml Carp IV 11/04/23 00:54 1 mg Q3H PRN Administration Pain (1,2,3,4,5) & Pre PT Past Medical History Medical History (Updated 10/21/23 @ 14:46 by Wang Du MD) Encounter for pre-operative examination Acute hyponatremia Closed fracture of left hip Dementia Mesenteric artery stenosis Osteopenia DEXA (01/19) with minimum T-score -1.2 involving femur. 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 Obstructive sleep apnea (~2009) Using dental appliance Hypertension Past Family History Family History Mother Hypertension Father Hypertension Stroke Denies family history of Colon cancer Ovarian cancer Prostate cancer Myocardial infarction Breast cancer Past Surgical History Surgical History History of tonsillectomy Social History Smoking Status: Never smoker Do You Dip or Chew Tobacco: No Hx Alcohol Use: No Hx Substance Use: No substance use type: does not use Physical Exam Vital Signs Last Vital Signs Temp 36.3 C L 10/21/23 14:39 Pulse 70 10/21/23 14:39 Resp 16 10/21/23 14:39 BP 189/66 H 10/21/23 14:39 Pulse Ox 97 10/21/23 14:39 O2 Del Method Room Air 10/21/23 14:39 Testing Laboratory Results 10/21/23 06:09 10/21/23 06:09 PT 10.3 Seconds (9.0-12.0) 10/20/23 21:37 INR 0.9 (0.9-1.1) 10/20/23 21:37 APTT 29 Seconds (21-31) 10/20/23 21:37 Urine Color Yellow 10/20/23 22:40 Urine Appearance Cloudy (Clear) A 10/20/23 22:40 Urine pH 5.5 (4.5-7.5) 10/20/23 22:40 Ur Specific [place] 1.018 (1.000-1.030) 10/20/23 22:40 Urine Protein Trace (Negative) H 10/20/23 22:40 Urine Glucose (UA) Negative (Negative) 10/20/23 22:40 Urine Ketones Negative (Negative) 10/20/23 22:40 Urine Nitrite Negative (Negative) 10/20/23 22:40 Ur Leukocyte Esterase 2+ (Negative) H 10/20/23 22:40 Urine WBC (Auto) >30 /hpf (0-5) H 10/20/23 22:40 Urine RBC (Auto) 0-4 /hpf (0-4) 10/20/23 22:40 U Hyaline Cast (Auto) 10-30 /lpf (0-5) H 10/20/23 22:40 U Epithel Cells (Auto) 10-20 /lpf (0-5) H 10/20/23 22:40 Urine Bacteria (Auto) Negative (Negative) 10/20/23 22:40 Electrocardiogram Date: 10/20/23 DICTATED BY: Zack Pina MD Test Reason : Blood Pressure : / mmHG Vent. Rate : 071 BPM Atrial Rate : 071 BPM P-R Int : 164 ms QRS Dur : 076 ms QT Int : 408 ms P-R-T Axes : 065 053 104 degrees QTc Int : 443 ms Normal sinus rhythm Nonspecific T wave abnormality Abnormal ECG When compared with ECG of 25-JUN-2023 13:14, No significant change was found Confirmed by Zack Pina ([id number]) on 10/21/2023 8:52:10 AM Chest X-Ray Date: 10/20/23 SINGLE VIEW CHEST CLINICAL HISTORY: Preoperative examination. Hip fracture. FINDINGS: An AP, portable, semierect chest radiograph is obtained. No prior studies are available for comparison at the time of dictation. The heart is top normal for projection noting atherosclerotic calcification of the thoracic aorta. Nonspecific interstitial thickening is likely chronic. There is bibasilar scarring/atelectasis. No airspace consolidation or large pleural effusion is identified. No pneumothorax is seen. The skeletal structures are osteopenic. Bony thorax is grossly intact. IMPRESSION: No active disease in the chest. Other Testing CT C spine: EXAM: CT Cervical Spine Without Intravenous Contrast CLINICAL HISTORY: Reason for exam: Unwitnessed fall. TECHNIQUE: Axial computed tomography images of the cervical spine without intravenous contrast. CTDI is 37.78 mGy and DLP is 624.41 mGy-cm. Automated exposure control was utilized for the study. A dose lowering technique was utilized adhering to the principles of ALARA. COMPARISON: No relevant prior studies available. FINDINGS: The vertebral body heights are maintained. The craniocervical junction is intact. The atlanto-dens interval is maintained. The dens is intact. There is no spondylolisthesis. Multilevel cervical spondylosis and degenerative disc disease. Straightening of the cervical lordosis. The unenhanced neck soft tissues are grossly unremarkable. The visualized lung apices are grossly clear. IMPRESSION: No acute fracture or subluxation of the cervical spine.
[2023-10-21] MEDS ORDERED: MEPERIDINE HCL 25 MG/ML CARP/VIAL IV PRN (15:42)
[2023-10-21] MEDS ORDERED: ePHEDrine sulfate 50 MG/ML AMP IV PRN (15:42)
[2023-10-21] MEDS ORDERED: ATROPINE SULFATE 0.1 MG/ML 10ML SYR IV PRN (15:42)
[2023-10-21] MEDS ORDERED: fentaNYL citrate PF 100 MCG/2 ML VIAL IV PRN (15:42)
[2023-10-21] MEDS ORDERED: HYDROmorphone INJ 1 MG/ML SYRINGE IV PRN (15:42)
[2023-10-21] MEDS ORDERED: BUPIVACAINE 0.5 % 5 MG/1 ML PF 10ML VIAL ONE (15:53)
[2023-10-21] MEDS ORDERED: PROPOFOL IV EMULSION 10 MG/ML 20 ML VIAL IV ONE ×2 (15:54→17:34)
[2023-10-21] MEDS ORDERED: LIDOCAINE 2% 2 ML VIAL/AMP(20MG/ML) INFIL ONE (15:54)
[2023-10-21] MEDS ORDERED: ONDANSETRON INJ 2 MG/ML 2 ML VIAL ONE (15:54)
[2023-10-21] MEDS ORDERED: fentaNYL citrate PF 100 MCG/2 ML VIAL ONE (15:54)
--- NOTE | 2023-10-21 16:05 | History & Physical Bridge Note ---
Date of Service October 21, 2023 History & Physical Bridge Note I have examined the patient, reviewed the History & Physical and in the interval since the performance of the History & Physical I have noted the following changes of clinical significance: no changes noted
--- NOTE | 2023-10-21 17:06 | Hospitalist Progress Note ---
Date of Service October 21, 2023 Assessment & Plan (1) Closed fracture of left hip: Plan: 88yo female with unwitnessed fall on 10/18/23 presenting with left hip pain, inability to bear weight. X-ray imaging with femoral neck fracture. Patient ambulatory with use of a cane and walker prior to fall. CT head/c-spine: no acute findings -Continue IVF with LR at 50mL/hr while BPO -Pain control with Tylenol and Morphine PRN -urine not grossly infected, culture pending -Orthopedic Surgery consultation appreciated - Plan for OR today with Dr. Noble -Will hold AM HCTZ and Lisinopril pre-operatively AM CBC (2) Acute hyponatremia: Plan: Yn=216 -serum osm 274, urine osm 535 -Continue IVF for now - LR at 80mL/hr - AM cortisol 20.97 ?SIADH, consider fluid restriction when not NPO AM bmp (3) Hypertension: Plan: Blood pressure mildly elevated -Holding Lisinopril and HCTZ pre-operatively (4) Dementia: Plan: Patient oriented to self. -Continue Aricept -Frequent orientation, maintenance of sleep/wake cycle where able and avoidance of delirium inducing agents as able Plan Dispo: continued inpatient stay DVT proph: SCDs Admission and Anticipated Discharge Date Admission Date: October 20, 2023 Subjective sitting patient seen resting in bed, sister present at bedside. Reports pain with movement of her hip, but if not moving pain is well-controlled. Reports being thirsty at the time of my exam this morning we didnt know when she would be going to the OR but looks like planned to OR today Review of Systems Review of Systems: All systems reviewed & are unremarkable except as noted in Subjective Physical Exam Physical Exam: General: NAD, VS as above Resp: normal respiratory effort, lungs clear to auscultation CV: RRR, no murmur, Abd: normal bowel sounds, non tender, no hepatosplenomegaly Extremities: left leg shortened and internally rotated Neuro: A&O x3, Skin: intact, no lesions noted Results & Data Results & Data Vital Signs (Past 12 Hours) Vital Signs Temp Pulse Resp BP Pulse Ox O2 Del Method 10/21/23 15:43 36.7 C 74 20 158/84 H 98 Room Air 10/21/23 14:39 36.3 C L 70 16 189/66 H 97 Room Air 10/21/23 07:56 36.4 C L 68 14 176/63 H 98 Room Air Laboratory Results CBC and chemistry reviewed PG Care Time/CCT Total # of Minutes Spent Total Time Spent with Patient: Total time spent is greater than 50% in coordination of care (as documented) at patient's floor/unit and/or counseling patient: Coding Level of Care Code 52117 SUB INP/OBS CARE 2/35MIN Diagnoses Closed fracture of left hip S72.002A Encounter type: initial encounter Acute hyponatremia E87.1 Hypertension I10 Dementia F03.90 (1) Closed fracture of left hip Encounter type: initial encounter Qualified Code(s): S72.002A - Fracture of unspecified part of neck of left femur, initial encounter for closed fracture
[2023-10-21] MEDS ORDERED: ceFAZolin 330 MG/ML 1 GM VIAL ONE (17:22)
[2023-10-21] MEDS ORDERED: ePHEDrine sulfate 50 MG/ML AMP ONE (17:22)
[2023-10-21] MEDS ORDERED: SODIUM CHLORIDE 0.9% PF INJ 10 ML VIAL ONE (17:22)
--- NOTE | 2023-10-21 17:58 | Operative Report ---
Post Operative Report Pre & Post Diagnosis Pre-Op diagnosis :left hip impacted femoral neck fracture Operation Date: 10/21/23 08:40 <No data on this case meets the specified criteria> Postoperative diagnosis: Same I identified the patient and participated in the time-out.: Yes Procedure Internal fixation left femoral neck fracture with cannulated screw fixation. Operation Date: 10/21/23 08:40 <No data on this case meets the specified criteria> Surgeon Ernesto Noble MD Balancer Giacomo CHENG Estimated Blood Loss 5 Findings Consistent with Post-Op Diagnosis Specimens None Anesthesia Type Spinal MAC Complications none Disposition Disposition: Recovery Room Indications 88-year-old female with acute valgus impacted femoral neck fracture. Description of Procedure Patient had spinal anesthesia IV sedation and preoperative IV antibiotics. Patient placed on a fracture table brought down onto a perineal post and the left foot was placed in the boot traction and the right leg was placed in the well-leg holding device. Right leg was well-padded. Left foot was well-padded in the boot. Minimal traction was placed in order not to displace the fracture of the hip which was a valgus impacted femoral neck fracture. Fluoroscopy was brought in to help place leg in appropriate alignment for fixation. Left hip was sterilely prepped and draped with ChloraPrep. A 4 cm incision was made over the lateral hip. Skin incised sharply and subcutaneous tissue were dissected down to the fascia karl which was divided longitudinally and the vastus lateralis was split down to the bone of the femur. Synthes 7.3 mm stainless marielena el cannulated screws short thread were used. The guidepin was advanced freehand under fluoroscopic guidance to set the first pin for an inverted triangle just above the calcar. The 2 pins were placed in parallel fashion superior to the inferior pin. 1 slightly posterior and 1 slightly anterior. Patient had a very narrow femur and she was very petite so had to be a tighter cluster to stay within the bone. All screws were within the femoral head and screw threads across fracture site and upon tightening the screws was some further compression of the fracture noted. The wound was irrigated the fascia karl was closed interrupted [id number] #1 Vicryl suture subcutaneous tissue closed with 2-0 Vicryl suture skin closed with surgical gregorio and a sterile dressings were applied. Patient tolerated the procedure well. Giacomo CHENG is my first this knee help to assist in the patient positioning and retraction and wound closure and postop care. I attest to the content of the Intraoperative Record and any orders documented therein. Any exceptions are noted below.
--- NOTE | 2023-10-21 18:40 | Anesthesiology Progress Note ---
Date of Service October 21, 2023 Anesthesia Post Procedure Vital Signs Vital Signs: Temp Pulse Pulse Pulse Resp BP BP 10/21/23 18:30 36.3 C L 58 L 12 147/54 H 10/21/23 18:20 60 16 148/61 H 10/21/23 18:10 36.6 C 69 16 139/61 10/21/23 15:43 36.7 C 74 20 158/84 H 10/21/23 14:39 36.3 C L 70 16 189/66 H 10/21/23 07:56 36.4 C L 68 14 176/63 H 10/21/23 00:40 10/21/23 00:40 36.5 C 73 16 169/66 H 10/21/23 00:16 80 20 132/56 L 10/20/23 23:13 73 22 142/65 H 10/20/23 21:43 72 10/20/23 21:34 36.8 C 75 22 139/66 Pulse Ox Pulse Ox O2 Del Method O2 Del Method O2 Flow Rate 10/21/23 18:30 95 Room Air 10/21/23 18:20 100 Oxymask 4 10/21/23 18:10 97 Oxymask 4 10/21/23 15:43 98 Room Air 10/21/23 14:39 97 Room Air 10/21/23 07:56 98 Room Air 10/21/23 00:40 95 Room Air 10/21/23 00:40 95 Room Air 10/21/23 00:16 96 Room Air 10/20/23 23:13 95 Room Air 10/20/23 21:43 10/20/23 21:34 94 Room Air Pain Intensity Left Hip: Pain Intensity: 2 Transfer of Care Handoff Completed per policy Notes Mental Status: alert / awake / arousable Patient Amnestic to Procedure: Yes Nausea / Vomiting: adequately controlled Pain: adequately controlled Airway Patency, RR, SpO2: stable & adequate BP & HR: stable & adequate Hydration State: stable & adequate Neuraxial Anesthesia: was administered and sensory block is resolving Anesthetic Complications: no major complications apparent Notes: pt at baseline mental status
--- NOTE | 2023-10-21 18:55 | Fluoroscopy Report ---
FL hip LT 2-3V CLINICAL HISTORY: LEFT HIP CANNULATED SCREWS ORIF TECHNIQUE: 2 views were obtained with the C-arm in the OR with the above procedure. Total fluoroscopy time was 61 seconds. Comparison: Comparison is made to hip radiograph 10/20/2023 FINDINGS/IMPRESSION: Intraoperative images were obtained of left hip cannulated screw placement Please correlate with intraoperative fluoroscopy and operative report. ACT 112: Negative or not required by law. Electronically signed by: Rusty Chinchilla M.D. 10/21/2023 6:54 PM
[2023-10-21] MEDS: DONEPEZIL HCL 10 MG TAB PO SCH (19:56)
[2023-10-21] MEDS: ASPIRIN 81 MG ECTAB PO SCH (19:57)
[2023-10-22 06:10] LABS: Basophils # (auto) 0.02 K/uL (0.00-0.20); Basophils % (auto) 0.2 %; Eosinophils # (auto) 0.06 K/uL (0.00-0.50); Eosinophils % (auto) 0.7 %; Hematocrit (blood only) 33.8 % (37.0-47.0); Hemoglobin 11.7 g/dl (12.0-16.0); Immature Granulocytes # (auto) 0.04 K/uL (0.01-0.20); Immature Granulocytes % (auto) 0.5 %; Lymphocytes # (auto) 1.55 K/uL (1.20-3.40); Lymphocytes % (auto) 17.6 %; Mean Corpuscular Hemoglobin 30.2 pg (25.0-34.0); Mean Corpuscular Hgb Conc 34.6 g/dL (32.0-36.0); Mean Corpuscular Volume 87.1 fL (80.0-100.0); Mean Platelet Volume 9.4 fL (9.4-12.4); Monocytes # (auto) 1.06 K/uL (0.11-0.59); Monocytes % (auto) 12.1 %; Neutrophils # (auto) 6.06 K/uL (1.40-6.50); Neutrophils % (auto) 68.9 %; Platelet Count 243 K/uL (130-400); RDW Coefficient of Variation 12.5 % (11.5-14.5); Red Blood Count 3.88 M/uL (4.20-5.40); White Blood Count 8.79 K/ul (4.8-10.8)
[2023-10-22 06:18] LABS: BUN Creatinine Ratio 22.6 (10-20); Calcium 8.1 mg/dl (8.6-10.3); Creatinine Clr Calc Pharmacy 51.9 ml/min; Est GFR (African American) 93.3 ml/min; Est GFR (Non-African American) 80.5 ml/min; Potassium 3.7 mmol/L (3.5-5.1)
--- NOTE | 2023-10-22 07:13 | Orthopedic Progress Note ---
Date of Service October 22, 2023 Assessment & Plan (1) Closed fracture of left hip: Plan: POD #1 s/p Internal fixation left femoral neck fracture with cannulated screw fixation. PT/OT- TTWB dressing changes as needed DVT proph with sandra/scd/asa CM consult for placement Admission and Anticipated Discharge Date Admission Date: October 20, 2023 Subjective POD #1 s/p Internal fixation left femoral neck fracture with cannulated screw fixation. patient confused this am, unsure of where she was and did not remember having her hip surgery. she asked multiple times where she was and where she was going from here. Physical Exam Physical Exam: Vital Signs Temp 36.4 C L 10/22/23 02:00 Pulse 69 10/22/23 02:00 Resp 16 10/22/23 02:00 BP 166/68 H 10/22/23 02:00 Pulse Ox 95 10/22/23 02:00 O2 Del Method Room Air 10/22/23 02:00 O2 Flow Rate 4 10/21/23 18:20 Intake & Output 10/21/23 10/22/23 10/22/23 18:59 06:59 18:59 Intake Total 2052.5 / 2612.5 560 / 2612.5 Output Total 1205 / 1705 500 / 1705 Balance 847.5 / 907.5 60 / 907.5 Weight 55.9 kg Intake: IV 1152.5 / 1712.5 560 / 1712.5 Lactated Ringe r's 1,000 ml @ 50 1152.5 / 1712.5 560 / 1712.5 mls/hr IV .Q20 H STEVEN Rx#: [id number] IV Perioperative 900 / 900 Output: Estimated Blood Loss 5 / 5 Urine Amount (Ca theter) 1200 / 1700 500 / 1700 Strickland/Indwelli ng 1200 / 1700 500 / 1700 Other: Other Intake Margy rce NPO Musculoskeletal: Left Hip: dressing clean and dry, thigh soft. calf soft and non tender. she is able to wiggle her toes and ankle without pain. Results & Data Vital Signs (Past 12 Hours) Vital Signs Temp Pulse Resp BP BP Pulse Ox Pulse Ox 10/22/23 02:00 36.4 C L 69 16 166/68 H 95 10/21/23 22:30 36.4 C L 64 16 161/69 H 96 03/18/24 21:00 96 10/21/23 20:45 36.2 C L 65 16 157/63 H 97 10/21/23 19:53 36.4 C L 66 16 156/61 H 96 10/21/23 19:15 36.5 C 63 16 164/66 H 95 O2 Del Method O2 Del Method 10/22/23 02:00 Room Air 10/21/23 22:30 Room Air 10/21/23 21:00 Room Air 10/21/23 20:45 Room Air 10/21/23 19:53 Room Air 10/21/23 19:15 Room Air (1) Closed fracture of left hip Encounter type: initial encounter Qualified Code(s): S72.002A - Fracture of unspecified part of neck of left femur, initial encounter for closed fracture
--- NOTE | 2023-10-22 08:32 | Hospitalist Progress Note ---
Date of Service October 22, 2023 Assessment & Plan (1) Closed fracture of left hip: Plan: 88yo female with unwitnessed fall on 10/18/23 presenting with left hip pain, inability to bear weight. X-ray imaging with femoral neck fracture. Patient ambulatory with use of a cane and walker prior to fall. CT head/c-spine: no acute findings s/p Internal fixation left femoral neck fracture with cannulated screw fixation with Dr Nation on 10/20. EBL 5cc WBC wnl, afebrile Hgb 12.2--> 11.7, acute blood loss anemia in setting of surgery and dilutional aspect from IVF suspected. VSS Pain control- continue tylenol/morphine for breakthrough. Will add oxycodone in additional to tylenol for PO option/longer lasting control Bowel regimen - schedule colace BID, miralax daily in meantime Antiemetics prn Urine cx + staph species -- brewer to be removed once working with PT/OT --> will start ancef IV given slight confusion this morning/suspecting she missed her surgery, however did just get IV morphine in patient w/ baseline reported dementia. F/u urine cx/po abx as able Vit D 28.8, can start 1000iu daily PT/OT consults pending Labs in AM (2) Acute hyponatremia: Plan: Na 129 on admission. Serum osm 274, urine osm 535 Cortisol 20.97 on AM check, TSH wnl ?SIADH, uncontrolled pain, ?HCTZ use Na 128 on repeat Continued on IVF LR @ 50cc/hr overnight Na 133 on repeat Lisinopril 20mg resumed, holding HCTZ for now, BP 146/65 and likely able to resume in AM BMP in AM (3) Hypertension: Plan: Blood pressure mildly elevated BUN/Cr 14/0.62 Lisinopril resumed, holding HCTZ for now given hyponatremia but will monitor Monitor (4) Dementia: Plan: Patient oriented to self. -Continue Aricept -Frequent orientation, maintenance of sleep/wake cycle where able and avoidance of delirium inducing agents as able Added PO oxycodone and prefer use over IV opiates. Bowel regimen to prevent constipation. ABx for possible UTI as below (5) UTI (urinary tract infection): Plan: had some lower cramping reported but denied any abd pain/frequency or burning with brweer in now post-op, monitoring to resume urine cx staph species, given mentation/brewer -- place on IV ancef and monitor final cx Plan DVT proph: SCDs, ASA 81mg BID post-op x 6 weeks per ortho PT/OT consults pending, CM to follow Admission and Anticipated Discharge Date Admission Date: October 20, 2023 Supervising Physician Co-Signing Physician Notes The patient was not seen by me. The chart was reviewed. Case discussed with SKYLAR Cabrera. Agree with assessment and plan Subjective Evaluated this morning, sitting up in bed. Little painful with movement to her right hip. Discussed surgery yesterday, she thought it was supposed to be today and was initally worried about missing her appointment. She does note she is a little more confused this morning, discussed using oral oxycodone for pain over continued IV morphine given underlying dementia. Pulled blinds, will work on day/night schedule. Discussed likely need for rehab btu will wait for therapy evals -- she is wondering when they will be around. She remembers falling and hurting her hip but doesn't remember yesterday. Has small contusion to R front of her face. No headache reported at present. +BS but slow, bowel regimen added. Questions/concerns addressed at this time. Physical Exam Physical Exam: General: 88yo female sitting up in bed, anxious and thinking she missed her appointment this morning but NO acute distress HEENT: contusion to R head, noninfectious appearing, trachea midline, mmm Resp: CTA, slightly diminished in the bases but no w/c/r, on room air CV: RRR, no significant m/r/g, no pitting edema or calf tenderness, pulses palpable, sensation intact GI: +BS, slight distension, nontender : brewer draining slightly cloudy yellow urine MSK/Neuro: dressing to LEFT hip c/d/i, mild edema, no significant eryt savanna/ecchymosis, +tenderness to palpation, compartments soft, toes mobile Psych: alert to person, place but not time, dementia at baseline but cooperative with care Results & Data Results & Data Vital Signs (Past 12 Hours) Vital Signs Temp Pulse Pulse Resp BP BP Pulse Ox 10/22/23 07:45 36.6 C 73 16 157/61 H 95 10/22/23 02:00 36.4 C L 69 16 166/68 H 95 10/21/23 22:30 36.4 C L 64 16 161/69 H 96 10/21/23 21:00 10/21/23 20:45 36.2 C L 65 16 157/63 H 97 Pulse Ox O2 Del Method O2 Del Method 10/22/23 07:45 Room Air 10/22/23 02:00 Room Air 10/21/23 22:30 Room Air 10/21/23 21:00 96 Room Air 10/21/23 20:45 Room Air Laboratory Results 10/22/23 Range/Units 05:34 WBC 8.79 (4.8-10.8) K/ul RBC 3.88 L (4.20-5.40) M/uL Hgb 11.7 L (12.0-16.0) g/dl Hct 33.8 L (37.0-47.0) % MCV 87.1 (80.0-100.0) fL MCH 30.2 (25.0-34.0) pg MCHC 34.6 (32.0-36.0) g/dL RDW Std Deviation 40.0 (36.4-46.3) fL RDW Coeff of Federico 12.5 (11.5-14.5) % Plt Count 243 (130-400) K/uL MPV 9.4 (9.4-12.4) fL Immature Gran % (Auto) 0.5 % Neut % (Auto) 68.9 % Lymph % (Auto) 17.6 % Kerr % (Auto) 12.1 % Eos % (Auto) 0.7 % Baso % (Auto) 0.2 % Neut # (Auto) 6.06 (1.40-6.50) K/uL Lymph # (Auto) 1.55 (1.20-3.40) K/uL Kerr # (Auto) 1.06 H (0.11-0.59) K/uL Eos # (Auto) 0.06 (0.00-0.50) K/uL Baso # (Auto) 0.02 (0.00-0.20) K/uL Immature Gran # (Auto) 0.04 (0.01-0.20) K/uL Sodium 133 L (136-145) mmol/L Potassium 3.7 (3.5-5.1) mmol/L Chloride 99 (98-107) mmol/L Carbon Dioxide 26 (21-32) mmol/L Anion Gap 8 (3-11) BUN 14 (6-23) mg/dl Creatinine 0.62 (0.6-1.2) mg/dl Est Cr Clr Drug Dosing 51.9 ml/min Est GFR ( Amer) 93.3 ml/min Est GFR (Non-Af Amer) 80.5 ml/min BUN/Creatinine Ratio 22.6 H (10-20) Glucose 118 H (70-99(Fasting)) mg/dl Calcium 8.1 L (8.6-10.3) mg/dl 25-OH Vitamin D Total 28.8 L (30-100) ng/ml Diagnostic Findings Hip X-Ray 10/21/23 00:00 FL hip LT 2-3V CLINICAL HISTORY: LEFT HIP CANNULATED SCREWS ORIF TECHNIQUE: 2 views were obtained with the C-arm in the OR with the above procedure. Total fluoroscopy time was 61 seconds. Comparison: Comparison is made to hip radiograph 10/20/2023 FINDINGS/IMPRESSION: Intraoperative images were obtained of left hip cannulated screw placement Please correlate with intraoperative fluoroscopy and operative report. ACT 112: Negative or not required by law. Electronically signed by: Rusty Chinchilla M.D. 10/21/2023 6:54 PM PG Care Time/CCT Total # of Minutes Spent Total Time Spent with Patient: Total time spent is greater than 50% in coordination of care (as documented) at patient's floor/unit and/or counseling patient: Coding Level of Care Code 15885 SUB INP/OBS CARE 3/50MIN Diagnoses Closed fracture of left hip S72.002A Encounter type: initial encounter Acute hyponatremia E87.1 Hypertension I10 Dementia F03.90 UTI (urinary tract infection) N39.0 (1) Closed fracture of left hip Encounter type: initial encounter Qualified Code(s): S72.002A - Fracture of unspecified part of neck of left femur, initial encounter for closed fracture
[2023-10-22] MEDS: POLYETHYLENE (MIRALAX) 17 GM PACK PO SCH (09:21)
[2023-10-22] MEDS: lisinopril 20 MG TAB PO SCH (09:21)
[2023-10-22] MEDS: DOCUSATE SODIUM 100 MG CAP PO SCH (09:21)
[2023-10-22] MEDS: oxyCODONE HCL IR 5 MG TAB (IMMEDIATE RELEASE) PO PRN (09:24)
[2023-10-22] MEDS: ceFAZolin 1000MG 1,000 MG/7.5 ML SYR IV SCH (11:45)
--- NOTE | 2023-10-23 07:17 | Orthopedic Progress Note ---
Date of Service October 23, 2023 Assessment & Plan (1) Closed fracture of left hip: Plan: POD #2 s/p Internal fixation left femoral neck fracture with cannulated screw fixation. PT/OT- TTWB dressing changes as needed DVT proph with sandra/scd/asa CM consult for placement Orthopedics will sign off at this time. Please call with any issues or concerns. She should follow-up with Dr. Noble 10 to 14 days postop. She can call [phone] for an appointment. Admission and Anticipated Discharge Date Admission Date: October 20, 2023 Subjective Patient resting in bed comfortably. She is easily awoken. States that she "just wants to be left alone". Denies pain however winces with gentle palpation of her thigh. No other complaints. Review of Systems Review of Systems: All systems reviewed & are unremarkable except as noted in Subjective Physical Exam Physical Exam: Left hip: Dressing is clean, dry, intact. Compartments soft. No calf tenderness. Toes are mobile. Distal neurovascular status and sensation is grossly intact. Results & Data Vital Signs (Past 12 Hours) Vital Signs Temp Pulse Resp BP Pulse Ox O2 Del Method O2 Del Method 10/22/23 21:08 36.7 C 82 16 165/71 H 96 Room Air 10/22/23 21:00 Room Air (1) Closed fracture of left hip Encounter type: initial encounter Qualified Code(s): S72.002A - Fracture of unspecified part of neck of left femur, initial encounter for closed fracture
--- NOTE | 2023-10-23 08:27 | Hospitalist Progress Note ---
Date of Service October 23, 2023 Assessment & Plan (1) Closed fracture of left hip: Plan: 88yo female with unwitnessed fall on 10/18/23 presenting with left hip pain, inability to bear weight. X-ray imaging with femoral neck fracture. Patient ambulatory with use of a cane and walker prior to fall. CT head/c-spine: no acute findings s/p Internal fixation left femoral neck fracture with cannulated screw fixation with Dr Nation on 10/20. EBL 5cc WBC wnl, afebrile Hgb 12.2--> 11.7, acute blood loss anemia in setting of surgery and dilutional aspect from IVF suspected. VSS Pain control- continue tylenol/morphine for breakthrough. Will add oxycodone in additional to tylenol for PO option/longer lasting control Bowel regimen - schedule colace BID, miralax daily in meantime. Last BM 10/20 Urine cx + coag negative staph. Was given IV Ancef, discussed w/ pharmacy and switching to Nitrofurantoin to complete course x 5 days. RN to remove brewer today Vit D 28.8, started low dose replacement, continue at dc PT/OT consulted and planning for [place] [facility]. Able to take back in AM 10/23 (2) Acute hyponatremia: Plan: Na 129 on admission. Serum osm 274, urine osm 535 Cortisol 20.97 on AM check, TSH wnl ?SIADH, uncontrolled pain, ?HCTZ use Na 128 on repeat and was continued on IVF LR @ 50cc/hr overnight and repeat 133 Lisinopril resumed for BP control, HCTZ remaining on hold and suspect not the best medication for patient given age/dehydration/fall on admission BUN/Cr 15/0.69 and stable, taking PO intake. Serum osm 276 No significant dehydration and holding off further IVF and remaining stable 133. No lightheaded/dizziness Pain control BMP iN AM (3) Hypertension: Plan: Blood pressure mildly elevated BUN/Cr 16/0.69 and lisinopril resumed but holding HCTZ given hyponatremia as above BP stable 155/62 (4) Dementia: Plan: Patient oriented to self. -Continue Aricept -Frequent orientation, maintenance of sleep/wake cycle where able and avoidance of delirium inducing agents as able Added PO oxycodone and prefer use over IV opiates. Bowel regimen to prevent constipation. ABx for possible UTI as below (5) UTI (urinary tract infection): Plan: had some lower cramping reported but denied any abd pain/frequency or burning --> brewer in place and urine cx growing coag negative staph on final Given Ancef IV on 10/21, switching to Nitrofurantoin to complete course Brewer to be removed by nursing Monitor UOP/retention issues Plan DVT proph: SCDs, ASA 81mg BID post-op x 6 weeks per ortho PT/OT consulted, ok to return back to SNF for ongoing therapy Is a bed hold at [facility]. CM to arrange transportation in advance for potential dc to [facility] 10/23 Admission and Anticipated Discharge Date Admission Date: October 20, 2023 Supervising Physician Co-Signing Physician Notes The patient was not seen by me. The chart was reviewed. Case discussed with SKYLAR Cabrera. Agree with assessment and plan Subjective Evaluated this morning, doing well, sitting up in the chair. Pain controlled with ordered medications but still doesn't remember having surgery but remembers falling and breaking her hip. Discussed brewer to have been removed, she notes she likes it in because then she doesn't have to keep getting up to go when she has to. Discussed infection in urine and treatment and likely from catheter placement but could have been contributing to her fall and wanting to remove catheter to ensure clearning infection. Reports no fever/chills, chest pain , shortness of breath. She is concerns about getting a better brush to comb her hair. Will need acute rehab at discharge. Questions/concerns addressed at this time. Physical Exam Physical Exam: General: 88yo female sitting up in bed, anxious about needing a comb to brush her hair. alert to person/place/time at times but didn't remember having her surgery but remembered breaking her hip HEENT: contusion to R head, noninfectious appearing, trachea midline, mmm Resp: CTA, slightly diminished in the bases but no w/c/r, on room air CV: RRR, no significant m/r/g, no pitting edema or calf tenderness, pulses palpable, sensation intact GI: +BS, slight distension, nontender : brewer draining slightly cloudy yellow urine -- RN to remove MSK/Neuro: dressing to LEFT hip c/d/i, mild edema, no significant erythema/ecchymosis, +tenderness to palpation, compartments soft, toes mobile Psych: alert to person, place , appears w/ dementia at baseline but cooperative with care Results & Data Results & Data Vital Signs (Past 12 Hours) Vital Signs Temp Pulse Resp BP Pulse Ox O2 Del Method O2 Del Method 10/23/23 07:33 36.8 C 68 16 155/62 H 98 Room Air 10/22/23 21:08 36.7 C 82 16 165/71 H 96 Room Air 10/22/23 21:00 Room Air Laboratory Results 10/23/23 Range/Units 08:44 WBC 8.03 (4.8-10.8) K/ul RBC 3.92 L (4.20-5.40) M/uL Hgb 12.0 (12.0-16.0) g/dl Hct 34.3 L (37.0-47.0) % MCV 87.5 (80.0-100.0) fL MCH 30.6 (25.0-34.0) pg MCHC 35.0 (32.0-36.0) g/dL RDW Std Deviation 40.6 (36.4-46.3) fL RDW Coeff of Federico 12.7 (11.5-14.5) % Plt Count 252 (130-400) K/uL MPV 9.3 L (9.4-12.4) fL Sodium 133 L (136-145) mmol/L Potassium 3.8 (3.5-5.1) mmol/L Chloride 98 (98-107) mmol/L Carbon Dioxide 29 (21-32) mmol/L Anion Gap 6 (3-11) BUN 15 (6-23) mg/dl Creatinine 0.69 (0.6-1.2) mg/dl Est Cr Clr Drug Dosing 46.6 ml/min Est GFR ( Amer) 90.1 ml/min Est GFR (Non-Af Amer) 77.7 ml/min BUN/Creatinine Ratio 21.7 H (10-20) Glucose 93 (70-99(Fasting)) mg/dl Osmolality 276 L (280-300) mOsm/kg Calcium 8.2 L (8.6-10.3) mg/dl Magnesium 1.9 (1.7-2.4) mg/dl PG Care Time/CCT Total # of Minutes Spent Total Time Spent with Patient: Total time spent is greater than 50% in coordination of care (as documented) at patient's floor/unit and/or counseling patient: Coding Level of Care Code 14439 SUB INP/OBS CARE 350MIN Diagnoses Closed fracture of left hip S72.002A Encounter type: initial encounter Acute hyponatremia E87.1 Hypertension I10 Dementia F03.90 UTI (urinary tract infection) N39.0 (1) Closed fracture of left hip Encounter type: initial encounter Qualified Code(s): S72.002A - Fracture of unspecified part of neck of left femur, initial encounter for closed fracture
[2023-10-23 09:01] LABS: Hematocrit (blood only) 34.3 % (37.0-47.0); Mean Corpuscular Hemoglobin 30.6 pg (25.0-34.0); Mean Corpuscular Volume 87.5 fL (80.0-100.0); Mean Platelet Volume 9.3 fL (9.4-12.4); Platelet Count 252 K/uL (130-400); RDW Coefficient of Variation 12.7 % (11.5-14.5); RDW Standard Deviation 40.6 fL (36.4-46.3); Red Blood Count 3.92 M/uL (4.20-5.40); White Blood Count 8.03 K/ul (4.8-10.8)
[2023-10-23 09:21] LABS: BUN Creatinine Ratio 21.7 (10-20); Calcium 8.2 mg/dl (8.6-10.3); Creatinine Clr Calc Pharmacy 46.6 ml/min; Est GFR (African American) 90.1 ml/min; Est GFR (Non-African American) 77.7 ml/min; Magnesium 1.9 mg/dl (1.7-2.4); Potassium 3.8 mmol/L (3.5-5.1)
[2023-10-23] MEDS: CHOLECALCIFEROL 10 MCG (400 UNITS) TAB PO SCH (09:58)
[2023-10-23] MEDS: NITROFURANTOIN MONOHYDRATE 100 MG CAP PO SCH (12:49)
--- NOTE | 2023-10-24 08:23 | Discharge Summary ---
Discharge Summary Date of Service October 24, 2023 Admission HPI Per Admitting Provider Sonya Foster is a pleasant 88yo female with history of dementia presenting from [facility] with a left hip fracture. Patient is poor historian due to underlying dementia and is unable to provide clear details of the events prior to arrival. History obtained primarily through chart review, discussion with ER staff and patient's sister, Eloisa Foster. Patient with unwitnessed fall on 10/18/23, found down. Her sister was notified on 10/19/23 of the fall. Patient with ongoing left hip pain, inability to walk or bear weight. She does not clearly remember the fall. No complaints at this time - specifically denies chest pain, palpitations, cough, SOB, [place] or neck pain. Prior to the fall patient was ambulating with use of a walker and a cane. In the ER she is afebrile, HD stable, NAD ER Course: Tylenol 1gm IV Principal Dx & Hospital Course #1 = Principal Diagnosis (1) Closed fracture of left hip: 88yo female with unwitnessed fall on 10/18/23 presenting with left hip pain, inability to bear weight. X-ray imaging with femoral neck fracture. Patient ambulatory with use of a cane and walker prior to fall. CT head/c-spine: no acute findings s/p Internal fixation left femoral neck fracture with cannulated screw fixation with Dr Nation on 10/20. EBL 5cc WBC wnl, afebrile Hgb 12.2--> 11.7, acute blood loss anemia in setting of surgery and dilutional aspect from IVF suspected. VSS Pain control- continue tylenol/morphine for breakthrough. Will add oxycodone in additional to tylenol for PO option/longer lasting control Bowel regimen - schedule colace BID, miralax daily in meantime. Last BM 10/20 Urine cx + coag negative staph. Was given IV Ancef, discussed w/ pharmacy and switching to Nitrofurantoin to complete course x 5 days. RN to remove brewer today Vit D 28.8, started low dose replacement, continue at dc PT/OT consulted and planning for [facility]. Able to take back in AM 10/23 (2) Acute hyponatremia: Na 129 on admission. Serum osm 274, urine osm 535 Cortisol 20.97 on AM check, TSH wnl ?SIADH, uncontrolled pain, ?HCTZ use Na 128 on repeat and was continued on IVF LR @ 50cc/hr overnight and repeat 133 Lisinopril resumed for BP control, HCTZ remaining on hold and suspect not the best medication for patient given age/dehydration/fall on admission BUN/Cr 15/0.69 and stable, taking PO intake. Serum osm 276 No significant dehydration and holding off further IVF and remaining stable 133. No lightheaded/dizziness Pain control BMP iN AM (3) Hypertension: Blood pressure mildly elevated BUN/Cr 16/0.69 and lisinopril resumed but holding HCTZ given hyponatremia as above BP stable 155/62 (4) Dementia: Patient oriented to self. -Continue Aricept -Frequent orientation, maintenance of sleep/wake cycle where able and avoidance of delirium inducing agents as able Added PO oxycodone and prefer use over IV opiates. Bowel regimen to prevent constipation. ABx for possible UTI as below (5) UTI (urinary tract infection): had some lower cramping reported but denied any abd pain/frequency or burning --> brewer in place and urine cx growing coag negative staph on final Given Ancef IV on 10/21, switching to Nitrofurantoin to complete course Brewer to be removed by nursing Monitor UOP/retention issues Plan DVT proph: SCDs, ASA 81mg BID post-op x 6 weeks per ortho PT/OT consulted, ok to return back to SNF for ongoing therapy Is a bed hold at [facility]. CM to arrange transportation in advance for potential dc to [facility] 10/23 Discharge Exam General: 88yo female sitting up in bed, anxious about needing a comb to brush her hair. alert to person/place/time at times but didn't remember having her surgery but remembered breaking her hip HEENT: contusion to R head, noninfectious appearing, trachea midline, mmm Resp: CTA, slightly diminished in the bases but no w/c/r, on room air CV: RRR, no significant m/r/g, no pitting edema or calf tenderness, pulses palpable, sensation intact GI: +BS, slight distension, nontender : brewer draining slightly cloudy yellow urine -- RN to remove MSK/Neuro: dressing to LEFT hip c/d/i, mild edema, no significant erythema/ecchymosis, +tenderness to palpation, compartments soft, toes mobile Psych: alert to person, place , appears w/ dementia at baseline but cooperative with care Updated Medication List Medication Instructions Recorded Confirmed Type lisinopril 20 mg tablet 20 mg PO DAILY #90 tabs 02/26/22 10/20/23 Rx donepezil 10 mg tablet 10 mg PO HS 30 days #30 tabs 04/19/23 10/20/23 Rx acetaminophen 325 mg tablet 650 mg PO Q6H PRN PAIN/FEVER 10/20/23 10/20/23 History (Tylenol) hydrochlorothiazide 25 mg tablet 25 mg PO QAM 10/20/23 10/20/23 History acetaminophen 500 mg tablet 1,000 mg (2 x 500 mg) PO Q8H PRN 10/23/23 Rx (Tylenol Extra Strength) fever or pain #14 tabs aspirin 81 mg tablet,delayed 81 mg PO BID 41 days #82 tabs 10/23/23 Rx release cholecalciferol (vitamin D3) 10 10 mcg PO QAM #30 tabs 10/23/23 Rx mcg (400 unit) tablet (Vitamin D3) docusate sodium 100 mg capsule 100 mg PO BID #14 caps 10/23/23 Rx nitrofurantoin 100 mg PO BID #7 caps 10/23/23 Rx monohydrate/macrocrystals 100 mg capsule oxycodone 5 mg tablet 5 mg PO Q4H PRN pain #7 tabs 10/23/23 Rx polyethylene glycol 3350 17 gram 17 g PO DAILY #14 ea 10/23/23 Rx oral powder packet (Miralax) Hospital Stay Data Consultations 10/20/23 22:49 ED Decision to Admit Stat 10/21/23 00:55 Consult Anesthesiology Routine Consult Orthopedic Surgery Routine Procedures Performed Operation Date: 10/21/23 08:40 Actual Procedures p Left Hip Open Reduction Interal Fixation(Left) - Ernesto Noble MD Diagnostic Imagining Performed 10/20/23 23:29 CT cervical spine wo con Stat CT head/brain wo con Stat 10/21/23 FL hip LT 2-3V Routine Pending Results Patient Have Any Pending Studies at Discharge: No Discharge Instructions Given to Patient (Per Discharging Provider) You have been hospitalized for a hip fracture. CT scan of your head was NEGATIVE for acute stroke. Orthopedics, Dr Noble, was consulted and you underwent surgery to fix this. You will need to continue aspirin 81mg by mouth twice daily for six weeks to prevent blood clots. You can continue Tylenol as needed for pain and oxycodone as needed for breakthrough pain. You should continue a bowel regimen to prevent any constipation. While in the hospital, your urine was checked and showed evidence for bacteria/infection and you were given IV antibiotics and changed to oral antibiotics in the form of Nitrofurantoin which is to be continued through 10/26 to complete the course. This is to be taken twice daily. Your vitamin D level was slightly low and you have been started on replacement and are being continued on this at discharge. Your HYDROCHLOROTHIAZIDE you take for blood pressure has been held during admission as your sodium levels were low and this can be worsened by this and cause dehydration which could have led to the fall/hip fracture. We would recommend you CONTINUE TO HOLD this medication at discharge and monitor your blood pressures and can discuss resuming this in follow up if needed for leg swelling/weight gain but likely is causing you to be too dehydrated. You will need follow up with orthopedics in the next 2 weeks for follow up. You should follow up with primary care in the next 7-10 days to monitor your progress after discharge. Please return to the ER with any fever/chills, uncontrolled pain, chest pain, shortness of breath, redness/drainage from your incision site, or for any other symptoms concerning for you. It has been a pleasure being a part of the medical team providing for you while you have been in the hospital. Take care! Coding Diagnoses Closed fracture of left hip S72.002A Encounter type: initial encounter Acute hyponatremia E87.1 Hypertension I10 Dementia F03.90 UTI (urinary tract infection) N39.0
--- NOTE | 2023-10-24 08:23 | Discharge Summary ---
Date of Service October 24, 2023 Admission HPI Per Admitting Provider Sonya Foster is a pleasant 88yo female with history of dementia presenting from [facility] with a left hip fracture. Patient is poor historian due to underlying dementia and is unable to provide clear details of the events prior to arrival. History obtained primarily through chart review, discussion with ER staff and patient's sister, Eloisa Foster. Patient with unwitnessed fall on 10/18/23, found down. Her sister was notified on 10/19/23 of the fall. Patient with ongoing left hip pain, inability to walk or bear weight. She does not clearly remember the fall. No complaints at this time - specifically denies chest pain, palpitations, cough, SOB, BECK[place] or neck pain. Prior to the fall patient was ambulating with use of a walker and a cane. In the ER she is afebrile, HD stable, NAD ER Course: Tylenol 1gm IV Admission Exam Per Admitting Provider Chief Complaint: left hip fracture Primary Care Provider: NO PCP Sonya Foster is a pleasant 88yo female with history of dementia presenting from [facility] with a left hip fracture. Patient is poor historian due to underlying dementia and is unable to provide clear details of the events prior to arrival. History obtained primarily through chart review, discussion with ER staff and patient's sister, Eloisa Foster. Patient with unwitnessed fall on 10/18/23, found down. Her sister was notified on 10/19/23 of the fall. Patient with ongoing left hip pain, inability to walk or bear weight. She does not clearly remember the fall. No complaints at this time - specifically denies chest pain, palpitations, cough, SOB, BECKFORD or neck pain. Prior to the fall patient was ambulating with use of a walker and a cane. In the ER she is afebrile, HD stable, NAD ER Course: Tylenol 1gm IV Principal Diagnosis Left Hip fracture, UTI Discharge Exam General: 88yo female sitting up in bed, NAD HEENT: contusion to R head improving, noninfectious appearing, trachea midline, mmm Resp: CTA, slightly diminished in the bases but no w/c/r, on room air CV: RRR, no significant m/r/g, no pitting edema or calf tenderness, pulses palpable, sensation intact GI: +BS, slight distension, nontender :no further brewer MSK/Neuro: dressing to LEFT hip c/d/i, mild edema decreased, no significant erythema/ecchymosis, +tenderness to palpation, compartments soft, toes mobile Psych: alert to person, place , appears w/ dementia at baseline but cooperative with care Discharge Data Allergies Allergy/AdvReac Type Severity Reaction Status Date / Time ibandronate sodium Allergy Unknown ON CENTRE Verified 10/20/23 22:51 CARE MED LIST Consultations 10/20/23 22:49 ED Decision to Admit Stat 10/21/23 00:55 Consult Anesthesiology Routine Consult Orthopedic Surgery Routine Procedures Performed Operation Date: 10/21/23 08:40 Actual Procedures p Left Hip Open Reduction Interal Fixation(Left) - Ernesto Noble MD Ordered Studies Hip/Pelvis X-Ray 10/20/23 21:48 SINGLE VIEW PELVIS; 2 VIEWS LEFT HIP CLINICAL HISTORY: Fall. Hip injury. FINDINGS: An AP view of the pelvis with AP and frog-leg views of the left hip are compared to study dated 08/30/2009. The skeletal structures are osteopenic. There is an impacted subcapital fracture of the left proximal femur with overlying soft tissue edema. No additional acute fracture is seen involving the right hip or the bony pelvis. Mild to moderate arthritic change and joint space narrowing is seen in the hips. There is degenerative sclerosis of the sacroiliac joints. Lumbosacral spondylosis and scoliosis is partially visualized. Phleboliths are noted in the pelvis. There is atherosclerotic calcification of the femoral arteries. IMPRESSION: Impacted subcapital fracture of the left proximal femur. Electronically signed by: Anil Mcfarlane M.D. 10/21/2023 7:05 AM Chest X-Ray 10/20/23 21:49 SINGLE VIEW CHEST CLINICAL HISTORY: Preoperative examination. Hip fracture. FINDINGS: An AP, portable, semierect chest radiograph is obtained. No prior studies are available for comparison at the time of dictation. The heart is top normal for projection noting atherosclerotic calcification of the thoracic aorta. Nonspecific interstitial thickening is likely chronic. There is bibasilar scarring/atelectasis. No airspace consolidation or large pleural effusion is identified. No pneumothorax is seen. The skeletal structures are osteopenic. Bony thorax is grossly intact. IMPRESSION: No active disease in the chest. ACT 112: Negative or not required by law. Electronically signed by: Anil Mcfarlane M.D. 10/21/2023 7:[address] 10/20/23 23:29 Exam(s): CT C SPINE EXAM: CT Cervical Spine Without Intravenous Contrast CLINICAL HISTORY: Reason for exam: Unwitnessed fall. TECHNIQUE: Axial computed tomography images of the cervical spine without intravenous contrast. CTDI is 37.78 mGy and DLP is 624.41 mGy-cm. Automated exposure control was utilized for the study. A dose lowering technique was utilized adhering to the principles of ALARA. COMPARISON: No relevant prior studies available. FINDINGS: The vertebral body heights are maintained. The craniocervical junction is intact. The atlanto-dens interval is maintained. The dens is intact. There is no spondylolisthesis. Multilevel cervical spondylosis and degenerative disc disease. Straightening of the cervical lordosis. The unenhanced neck soft tissues are grossly unremarkable. The visualized lung apices are grossly clear. IMPRESSION: No acute fracture or subluxation of the cervical spine. Electronically signed by: Tono Romero MD 10/21/23 01:[address] 10/20/23 23:29 Exam(s): CT HEAD Without Contrast EXAM: CT Head Without Intravenous Contrast CLINICAL HISTORY: Reason for exam: unwitnessed fall. TECHNIQUE: Axial computed tomography images of the head/brain without intravenous contrast. CTDI is 37.78 mGy and DLP is 624.41 mGy-cm. Automated exposure control was utilized for the study. A dose lowering technique was utilized adhering to the principles of ALARA. COMPARISON: No relevant prior studies available. FINDINGS: No acute intracranial hemorrhage. No midline shift or mass effect. The territorial robert-white matter differentiation is maintained throughout. Age-related cerebral volume loss. Periventricular and subcortical white matter hypoattenuation, consistent with chronic microangiopathy. The visualized orbits appear grossly unremarkable. The calvarium is intact. The visualized paranasal sinuses and mastoid air cells are grossly clear. IMPRESSION: No acute intracranial hemorrhage, midline shift, or mass effect. Electronically signed by: Tono Romero MD 10/21/23 01:42 AM Hip X-Ray 10/21/23 00:00 FL hip LT 2-3V CLINICAL HISTORY: LEFT HIP CANNULATED SCREWS ORIF TECHNIQUE: 2 views were obtained with the C-arm in the OR with the above procedure. Total fluoroscopy time was 61 seconds. Comparison: Comparison is made to hip radiograph 10/20/2023 FINDINGS/IMPRESSION: Intraoperative images were obtained of left hip cannulated screw placement Please correlate with intraoperative fluoroscopy and operative report. ACT 112: Negative or not required by law. Electronically signed by: Rusty Chinchilla M.D. 10/21/2023 6:54 PM Hospital Course (1) Closed fracture of left hip: 88yo female with unwitnessed fall on 10/18/23 presenting with left hip pain, inability to bear weight. X-ray imaging with femoral neck fracture. Patient ambulatory with use of a cane and walker prior to fall. CT head/c-spine: no acute findings s/p Internal fixation left femoral neck fracture with cannulated screw fixation with Dr Nation on 10/20. EBL 5cc WBC wnl, afebrile Hgb 12.2--> 11.7, acute blood loss anemia in setting of surgery and dilutional aspect from IVF suspected. VSS and hgb normalized on repeat to 12. Pain control, bowel regimen -- last BM 10/20 and to continue bowel regimen while on pain medications. Tylenol/oxycodone for breakthrough Vit D 28.8, PO replacement ordered and to continue at discharge DVT proph: ASA 81mg BID x 6 weeks F/u orthopedics in 2 weeks PT/OT consulted, planning to return back to [facility] for rehab Of note, did have +UA and treated for UTI as below, removed brewer and has been voiding spontaneously. Completing course abx PO nitrofurantoin x 5 days. Did also review meds and her hyponatremia on admission and to hold her HCTZ at dc (no increased LE edema on exam) and hold off to prevent dehydration at discharge and can resume in f/u discussions w/ primary care if needed for BP control but has been stable off such while inpatient (2) Acute hyponatremia: Na 129 on admission. Serum osm 274, urine osm 535 Cortisol 20.97 TSH wnl IVF provided, pain control. ?component SIADH/head trauma from fall.? HCTZ use at baseline (hx hypokalemia in system, likely not best med for her either) CT head on admission negative Na improved and stable x days at 133. Denied lightheaded/dizziness. Continued pain control encouraged F/u PCP (3) Hypertension: Lisinopril resumed post-operatively however HCTZ placed on hold Blood pressure mildly elevated BUN/Cr 16/0.69 and lisinopril resumed but holding HCTZ given hyponatremia as above BP acceptable in setting of pain 177/74 in hospital setting and had prior borderline BP days prior (asymptomatic w such) If needing additional BP control and diuretic, consider spironolactone w/ repeat BMP montioring given prior low K in past (4) Dementia: Patient oriented to self, place. Not event/time Has been followed by [facility], progressive dementia and increase donepezil last visit to 10mg and continued while inpatient Appears around baseline given prior neuro reports Abx for tx UTI as outlined (5) UTI (urinary tract infection): had some lower cramping reported but denied any abd pain/frequency or burning 10/20 and brewer had been in place urine cx from admit growing coag neg staph -- had been given Ancef IV, brewer removed and transitioned to Nitrofurantoin to complete 5 day course No issues w/ retention since brewer removed per nursing Plan DVT proph: SCDs, ASA 81mg BID post-op x 6 weeks Discharging to [facility] for ongoing therapy Total Time Total Time Spent Total Time Spent (In Minutes): 45 Discharge Plan Discharge Items Patient Disposition: Transfer Custodial Fac Reason For Visit: LEFT HIP FRACTURE Discharge Diagnosis: Left Hip fracture, urinary tract infection Condition on Discharge: Fair Goals: You have been hospitalized for an urgent problem which required surgery. During your stay at [facility], we have made an effort to correct the problem that brought you to the hospital while keeping you as comfortable as possible. Surgery and medications were used to bring your condition under control and your discharge instructions will include directions for any medications you should take after leaving the hospital. Please make sure to follow the advice of your surgeon regarding follow up with the surgeon and with your primary care provider. Activity: As commented below Activity Comment: toe touch weight bearing with walker/assistive device Non-emergency contact: Primary Care Provider and Surgeon Call non-emergency contact if: you have any medication questions, your symptoms worsen, your pain is concerning for you and you have a fever Follow-up/Referrals: Ernesto Noble MD [Surgeon] - (2 weeks post-op) Shunk,Clark R., DO [Primary Care Provider] - Diet: Regular Addtl Attending Provider Instructions: You have been hospitalized for a hip fracture. CT scan of your head was NEGATIVE for acute stroke. Orthopedics, Dr Noble, was consulted and you underwent surgery to fix this. You will need to continue aspirin 81mg by mouth twice daily for six weeks to prevent blood clots. You can continue Tylenol as needed for pain and oxycodone as needed for breakthrough pain. You should continue a bowel regimen to prevent any constipation. While in the hospital, your urine was checked and showed evidence for bacteria/infection and you were given IV antibiotics and changed to oral antibiotics in the form of Nitrofurantoin which is to be continued through 10/26 to complete the course. This is to be taken twice daily. Your vitamin D level was slightly low and you have been started on replacement and are being continued on this at discharge. Your HYDROCHLOROTHIAZIDE you take for blood pressure has been held during admission as your sodium levels were low and this can be worsened by this and cause dehydration which could have led to the fall/hip fracture. We would recommend you CONTINUE TO HOLD this medication at discharge and monitor your blood pressures and can discuss resuming this in follow up if needed for leg swelling/weight gain but likely is causing you to be too dehydrated. You will need follow up with orthopedics in the next 2 weeks for follow up. You should follow up with primary care in the next 7-10 days to monitor your progress after discharge. Please return to the ER with any fever/chills, uncontrolled pain, chest pain, shortness of breath, redness/drainage from your incision site, or for any other symptoms concerning for you. It has been a pleasure being a part of the medical team providing for you while you have been in the hospital. Take care! 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 You are to ambulate with a walker or crutches for approximately 6 weeks. B. You are TOE TOUCH WEIGHT BEARING on your operative lower extremity for at least 6 weeks. C. Wear low heeled shoes with non-slip soles D. Be sure that your floors are free of things that could trip you throw rugs, electrical cords, and small objects. Avoid wet and waxed floors, especially with crutches/walker/cane. E. Try to walk several times a day with rest periods between. F. You may shower 48 hours after surgery and get the incision area wet, but DO NOT soak or submerge incision area in water. (No baths, swimming pools, hot tubs) G. You may have a large, band-aid like dressing over your incision (Aquacel). This will remain on your incision for 7 days, and then can be removed. You CAN shower with this on. If incision is leaking through the dressing, please call the office . H. Do NOT apply soap or any ointment/lotions directly over incision. I. You may use ice as needed to operative site. SPECIAL CARE INSTRUCTIONS: VERY IMPORTANT TO READ AND REVIEW A. You may be at risk for phlebitis or blood clots. a. Wear surgical stockings (FACUNDO hose) for 2 weeks after surgery to improve circulation and reduce swelling. b. Take ASPIRIN 81mg twice daily B. There are a few signs you need to watch for after you are home. Call [facility] at [phone] if you experience any of the following: a. If you have a temperature of 101 degrees or higher. b. Sudden increase in pain in your hip not relieved by rest or pain medication. c. Any fluid or drainage from the incision; redness of the incision. d. Shortness of breath or chest pain. B. Please call [facility] at [phone] if you have any questions or concerns about your operation or recovery. C. Call your physician if: a. Temperature is greater than 101 degrees (F). b. Pain is not relieved by prescribed pain medications. c. Increase drainage or redness from incision. d. Unanswered questions or concerns. D. Pain Medication: a. You will be prescribed pain medication upon discharge that should last till your first post-operative appointment. b. If you experience nausea and/or skin rash, discontinue this medication and contact our office for an alternative medication. c. Caution- narcotic pain medication can cause constipation. FOLLOW UP VISIT: Please call [facility] at [phone] to schedule a follow up appointment 10-14 days from the date of your surgery date. Pending Studies at Discharge: No Stand-Alone Forms: [facility] Skilled Items Patient informed of condition?: Yes DNR: Yes Discharge Level of Care: Skilled Communicable Disease: No Discharge Prognosis: Improving Lines: None Urinary Catheter: No Medications and DC Order Prescriptions: New acetaminophen [Tylenol Extra Strength] 500 mg Tablet 1,000 mg PO Q8H PRN (Reason: fever or pain) Qty: 14 0RF aspirin 81 mg Tablet,Delayed Release (Dr/Ec) 81 mg PO BID 41 Days Qty: 82 0RF oxycodone 5 mg Tablet 5 mg PO Q4H PRN (Reason: pain) Qty: 7 0RF polyethylene glycol 3350 [Miralax] 17 gram Powder In Packet 17 g PO DAILY Qty: 14 0RF docusate sodium 100 mg Capsule 100 mg PO BID Qty: 14 0RF cholecalciferol (vitamin D3) [Vitamin D3] 10 mcg (400 unit) Tablet 10 mcg PO QAM Qty: 30 0RF nitrofurantoin monohyd/m-cryst 100 mg Capsule 100 mg PO BID Qty: 7 0RF Continued lisinopril 20 mg tablet 20 mg PO DAILY Qty: 90 3RF donepezil 10 mg tablet 10 mg PO HS 30 Days Qty: 30 5RF Held hydrochlorothiazide 25 mg Tablet 25 mg PO QAM Hold Instructions: Resume on 11/09/23. please hold until discussed in follow up with primary care Discontinued acetaminophen [Tylenol] 325 mg Tablet 650 mg PO Q6H MDD 3 GRAMS APAP/24 HOURS PRN (Reason: PAIN/FEVER) Discharge Orders: Discharge Order (Routine); Ordered 10/24/23 Ordered By: Audelia Christopher Admission Data Admit Date/Time: 10/20/23 23:17 Attending Provider: Constantine Sanchez Admit Provider: Hannah Huitron Primary Care Provider: Clark Machuca Other Providers: Hannah Huitron; Jessica Oscar; Chelsey Miramontes; Jeanine Taylor; Kristi Garibay; Alessio Romero; Perico Cast; Sushil Tubbs; Deonte Jensen; Raisa Jensen; Clark Garcia; Jeni Carmen; Mike Aj; Jarad Lemus; Tito Braswell; Kenny Worley; Caitlin Retana; Madhav Barron; Audelia Barron; Bert Fairchild; Slime Hart; Jered Cottrell; Miya Cantu; Adrianna Aponte; Son Sorto; Hannah Acosta A; Dulce Wallace A; Monika Cobb; Cinthya Bob A; Rosalino Bob V; Wang Du A; Chelsey Cornejo; Jt Mojica; Griselda Howard; Rosalino Harper; Alexi Retana; Rusty Simmons; Scarlet Barboza; Daisy Combs; Rosalino Mcelroy; Reynaldo Ortega; Ewa Perdomo; Anil Rubalcava; Chrissy Damian; Peggy Ma; Darryn Beard; Giacomo Worley; Lucy Shepherd; Dilan Yadav; Juvencio Hull; Zack Puente; Alessio Rosen Jr; Cherelle Campo; Vanda Garcia A.; Skye Dupree.; Son Marr; Deonte Haque.; Chelly Tuttle S.; Vanda Coley A.; Sarath Masters.; Jose Elias Lyman; Orville Forte; Bandar Pace; Jan Ralph; Prashant Moreno; Elissa Harrell; Katalina Gomez; Alex Chung; Jt Hilario; Tera Ruffin; Laurel Sims; Chilango Agosto; Maude Leon; Yakov Johnson; Zack Palmer; Madhav Beavers; Kenny Caceres; Zack Fernandez; Sushil Marcos; Ernesto Noble; Toni Ku; Alessio Collins; Maude Hairston; Praveen Villalobos; Rick Banks; Uday Christine; Kristin Faith; Giacomo Harris; Jacky Doll; Audelia Cox; Neo Ramirez; Merari Frausto; [facility] Other Interventions: Discharge Summary Assessment (RN) Last Done: 10/24/23 09:52 Supervising Physician Co-Signing Physician Notes The patient was not seen by me. The chart was reviewed. Case discussed with SKYLAR Cabrera. Agree with assessment and plan. She is medically stable for discharge today, October 23 Coding Level of Care Code 44774 INP/OBS DISCH >30 MIN Diagnoses Closed fracture of left hip S72.002A Encounter type: initial encounter Acute hyponatremia E87.1 Hypertension I10 Dementia F03.90 UTI (urinary tract infection) N39.0
== END 2023-10-24 13:36 | DRG 481 ==
LOC: ED 21:25 → SUATTDRO 23:17 → 3E 23:17